=== PATIENT | male | born 1955 | race African-American/Black ===

== ENCOUNTER 2018-03-04 23:28 | Inpatient (IN) ==
--- NOTE | 2018-03-05 00:02 | ED ---
HPI General Chief complaint: Respiratory Symptoms Stated complaint: SOB Time Seen by Provider: 03/05/18 00:00 Source: patient History of Present Illness HPI narrative: The patient is a 62 year old female who presents to the [facility] emergency department with a history of greater than 3 weeks of cough and congestion. He reports that the cough is productive of a clear sputum. The patient reports having associated shortness of breath with exertion. He reports that recently the shortness of breath became so severe that when he was gasping for breath he felt a chest pain in the center of his chest. He denies having any chest pain currently. He denies any history of respiratory problems , however he does report a history of smoking a half a pack of cigarettes per day. He denies using an inhaler. He did see his primary care physician at the [facility] 3 weeks ago regarding the symptoms and was treated with antibiotic that he cannot recall the name of. He reports that he took it for 1 week. He reports that unfortunately his symptoms have continued. He did borrow a friend's inhaler this evening which helps some with his shortness of breath. He denies having any worsening lower extremity reports that he does have some edema that comes and goes. He denies any prior history of coronary artery disease, myocardial infarction, or congestive heart failure. He denies having any calf pain or erythema. On review of systems otherwise, the patient denies having any known recent fevers, neck pain, abdominal pain, vomiting, diarrhea, urinary symptoms, or neurologic symptoms. Related Data Home Medications Medication Instructions Recorded Confirmed aspirin [Aspir-81] 81 mg PO DAILY 03/04/18 03/04/18 insulin NPH isoph U-100 human 52 unit SUBCUT BID 03/04/18 03/04/18 [Novolin N NPH U-100 Insulin] insulin regular human [Novolin R 3 unit IM Q1H 03/04/18 03/04/18 Regular U-100 Insuln] Allergies Allergy/AdvReac Type Severity Reaction Status Date / Time No Known Allergies Allergy Verified 03/05/18 00:05 Review of Systems ROS: all other systems reviewed are negative [facility] Medical History Medical History Depression (Acute) Diabetes mellitus (Acute) HLD (hyperlipidemia) (Acute) Surgical History Surgical History Previous back surgery (Acute) Family History Family History Father Prostate cancer Social History Social History Substance History: No History of Abuse Second Hand Smoke Exposure: Yes Smoking Status: Current every day smoker Tobacco Type: Cigarettes How Often Do You Have a Drink Containing Alcohol: Never Recent Travel in [facility] within the Last 8 Weeks: No Recent Out of Country Travel within the Last 8 Weeks: No Immunization History Tetanus Immunization: Unsure Exam Const General: cooperative, no acute distress and well developed Nutritional Appearance: well nourished Orientation: alert, awake and oriented x3 HENMT Head: normocephalic and atraumatic Nose: no nasal discharge and no epistaxis Mouth: moist mucous membranes Eyes Sclera: normal sclerae Pupils: PERRL Neck Neck: no meningeal signs, trachea midline and no JVD Resp Effort & Inspection: no use of accessory muscles Auscultation: wheezes and other (The patient is a frequent sounding cough. The patient has decreased breath sounds in bilateral lung bases. The patient has soft expiratory wheezes posteriorly. No rhonchi or crackles are audible.) Cardio Rate: tachycardic (Sinus tachycardia in the low 100s. No pulse deficits to the extremities on simultaneous auscultation and palpation of his radial artery) Rhythm: regular rhythm Heart Sounds: no gallops, no murmurs and no rubs GI Inspection: non-distended Palpation: soft, no hepatosplenomegaly and nontender Skin General: dry skin (warm) Neuro General: alert, awake, oriented x3 and other (Grossly nonfocal) Cranial Nerves: other Speech: speech normal Motor: no movement abnormalities noted Extrem General: normal to inspection (2+ pulses in all 4 extremities), no calf tenderness, no clubbing, no cyanosis and edema (Trace pedal edema bilaterally.) Laterality: bilaterally Psych Mood: congruent mood Affect: normal affect Judgment: judgment good Course Initial Documented Vital Signs Pulse Rate 92 H 03/04/18 23:31 Respiratory Rate 16 03/04/18 23:31 Blood Pressure 122/59 L 03/04/18 23:31 Pulse Oximetry 96 03/04/18 23:31 Last Documented Vital Signs Temperature 98.7 F 03/05/18 12:00 Pulse Rate 104 H 03/05/18 18:00 Respiratory Rate 32 H 03/05/18 18:00 Blood Pressure 115/71 03/05/18 18:00 Pulse Oximetry 94 L 03/05/18 18:00 Medical Decision Making MDM Narrative Medical decision making narrative: During the course of the patient's emergency department visit, the patient's history, examination, and differential diagnosis were reviewed with the patient. The patient was placed on a bus driver/monitor with oximetry and frequent blood pressure monitoring. The patient had IV access obtained and blood work sent for analysis. A diagnostic evaluation was started regarding the patient's persistent cough, shortness of breath, chest pain. The patient was initially provided DuoNeb's for wheezing, Solu-Medrol 125 mg IV , Levaquin IV. The patient was provided aspirin 324 mg p.o. x1, nitroglycerin 1 inch to the chest wall. The patient was given a normal saline 500 mL bolus x1. The patient's diagnostic studies are remarkable for a white count of 7.6, hemoglobin 12.9, platelets 170 with 8.5 monocytes. PT PTT within normal limits , chemistries remarkable for chloride of 113, glucose 129, calcium 7.9, CPK is 2646 with a normal MB percent, troponin I is elevated at 0.08. A chest x-ray reveals bibasilar consolidation with tiny right effusion and cardiomegaly, pattern suggest pulmonary edema. The patient's case including history, pertinent physical examination findings, and laboratory studies were discussed with Dr. Ricci. It was agreed that the patient would be admitted to the hospitalist service. The patient's results were discussed with the patient, including the plan of care. I explained that further testing and/ or monitoring is indicated based on the patient's history, examination, and/ or laboratory findings. Therefore, I recommended admission for additional evaluation. The patient expressed understanding and was agreeable with this plan. The patient was admitted to the hospital in guarded condition and sent to a bed under the care of the [facility] service. Medical Screen Exam Complete: Yes Emergency Medical Condition: Yes Differential Diagnosis Differential Diagnosis: Pneumonia, versus COPD exacerbation, versus pneumothorax , versus acute coronary syndrome, versus new onset congestive heart failure Medical Records Medical records reviewed: Yes I reviewed the patient's medical records. Lab Data Lab results reviewed: Yes I reviewed the patient's lab results. Result diagrams: 03/05/18 09:08 03/05/18 09:07 Lab Results 03/05/18 03/05/18 03/05/18 Range/Units 00:13 00:13 00:13 WBC 7.6 (4.0-11.0) th/mm3 RBC 4.12 L (4.50-5.90) mil/mm3 Hgb 12.9 L (13.0-17.0) gm/dL Hct 37.8 L (39.0-51.0) % MCV 91.9 (80.0-100.0) fL MCH 31.4 (27.0-34.0) pg MCHC 34.2 (32.0-36.0) % RDW 15.2 (11.6-17.2) % Plt Count 170 (150-450) th/mm3 MPV 10.1 (7.0-11.0) fL Neut % (Auto) 55.1 (16.0-70.0) % Lymph % (Auto) 32.6 (9.0-44.0) % Hawkins % (Auto) 8.5 H (0.0-8.0) % Eos % (Auto) 3.0 (0.0-4.0) % Baso % (Auto) 0.8 (0.0-2.0) % Neut # (Auto) 4.2 (1.8-7.7) th/mm3 Lymph # (Auto) 2.5 (1.0-4.8) th/mm3 Hawkins # (Auto) 0.7 (0.0-0.9) th/mm3 Eos # (Auto) 0.2 (0.0-0.4) th/mm3 Baso # (Auto) 0.1 (0.0-0.2) th/mm3 WBC Differential . Differential Comment Auto diff final PT 10.3 (9.8-11.6) sec INR 1.0 Ratio APTT 26.5 (23.4-31.7) sec Sodium (136-145) meq/L Potassium (3.5-5.1) meq/L Chloride (98-107) meq/L Carbon Dioxide (21.0-32.0) meq/L Anion Gap (5-15) meq/L BUN (7-18) mg/dL Creatinine (0.60-1.30) mg/dL Estimated GFR (>89) mL/min POC Glucose (68-110) mg/dl Random Glucose (74-106) mg/dL Calcium (8.5-10.1) mg/dL Magnesium (1.5-2.5) mg/dL Total Bilirubin (0.2-1.0) mg/dL AST (15-37) U/L ALT (12-78) U/L Alkaline Phosphatase (45-117) U/L Total Creatine Kinase (39-308) U/L CK-MB (CK-2) (0.5-3.6) ng/mL CK-MB (CK-2) % (0.0-4.0) % Troponin I (0.02-0.05) ng/mL B-Natriuretic Peptide 164 H (0-100) pg/mL Total Protein (6.4-8.2) g/dL Albumin (3.4-5.0) g/dL Lipase (73-393) U/L Nasal Screen MRSA (PCR) (Negative) 03/05/18 03/05/18 03/05/18 Range/Units 00:13 00:16 00:45 WBC (4.0-11.0) th/mm3 RBC (4.50-5.90) mil/mm3 Hgb (13.0-17.0) gm/dL Hct (39.0-51.0) % MCV (80.0-100.0) fL MCH (27.0-34.0) pg MCHC (32.0-36.0) % RDW (11.6-17.2) % Plt Count (150-450) th/mm3 MPV (7.0-11.0) fL Neut % (Auto) (16.0-70.0) % Lymph % (Auto) (9.0-44.0) % Hawkins % (Auto) (0.0-8.0) % Eos % (Auto) (0.0-4.0) % Baso % (Auto) (0.0-2.0) % Neut # (Auto) (1.8-7.7) th/mm3 Lymph # (Auto) (1.0-4.8) th/mm3 Hawkins # (Auto) (0.0-0.9) th/mm3 Eos # (Auto) (0.0-0.4) th/mm3 Baso # (Auto) (0.0-0.2) th/mm3 WBC Differential Differential Comment PT (9.8-11.6) sec INR Ratio APTT (23.4-31.7) sec Sodium 145 (136-145) meq/L Potassium 3.5 (3.5-5.1) meq/L Chloride 114 H (98-107) meq/L Carbon Dioxide 25.7 (21.0-32.0) meq/L Anion Gap 5 (5-15) meq/L BUN 19 H (7-18) mg/dL Creatinine 1.10 (0.60-1.30) mg/dL Estimated GFR 68 L (>89) mL/min POC Glucose 54 L 122 H (68-110) mg/dl Random Glucose 54 L (74-106) mg/dL Calcium 7.8 L (8.5-10.1) mg/dL Magnesium 2.2 (1.5-2.5) mg/dL Total Bilirubin 0.7 (0.2-1.0) mg/dL AST 78 H (15-37) U/L ALT 111 H (12-78) U/L Alkaline Phosphatase 57 (45-117) U/L Total Creatine Kinase 2834 H (39-308) U/L CK-MB (CK-2) 11.7 H (0.5-3.6) ng/mL CK-MB (CK-2) % 0.4 (0.0-4.0) % Troponin I 0.12 H (0.02-0.05) ng/mL B-Natriuretic Peptide (0-100) pg/mL Total Protein 6.3 L (6.4-8.2) g/dL Albumin 3.4 (3.4-5.0) g/dL Lipase 53 L (73-393) U/L Nasal Screen MRSA (PCR) (Negative) 03/05/18 03/05/18 03/05/18 Range/Units 04:59 06:45 07:59 WBC (4.0-11.0) th/mm3 RBC (4.50-5.90) mil/mm3 Hgb (13.0-17.0) gm/dL Hct (39.0-51.0) % MCV (80.0-100.0) fL MCH (27.0-34.0) pg MCHC (32.0-36.0) % RDW (11.6-17.2) % Plt Count (150-450) th/mm3 MPV (7.0-11.0) fL Neut % (Auto) (16.0-70.0) % Lymph % (Auto) (9.0-44.0) % Hawkins % (Auto) (0.0-8.0) % Eos % (Auto) (0.0-4.0) % Baso % (Auto) (0.0-2.0) % Neut # (Auto) (1.8-7.7) th/mm3 Lymph # (Auto) (1.0-4.8) th/mm3 Hawkins # (Auto) (0.0-0.9) th/mm3 Eos # (Auto) (0.0-0.4) th/mm3 Baso # (Auto) (0.0-0.2) th/mm3 WBC Differential Differential Comment PT (9.8-11.6) sec INR Ratio APTT (23.4-31.7) sec Sodium (136-145) meq/L Potassium (3.5-5.1) meq/L Chloride (98-107) meq/L Carbon Dioxide (21.0-32.0) meq/L Anion Gap (5-15) meq/L BUN (7-18) mg/dL Creatinine (0.60-1.30) mg/dL Estimated GFR (>89) mL/min POC Glucose 102 147 H (68-110) mg/dl Random Glucose (74-106) mg/dL Calcium (8.5-10.1) mg/dL Magnesium (1.5-2.5) mg/dL Total Bilirubin (0.2-1.0) mg/dL AST (15-37) U/L ALT (12-78) U/L Alkaline Phosphatase (45-117) U/L Total Creatine Kinase (39-308) U/L CK-MB (CK-2) (0.5-3.6) ng/mL CK-MB (CK-2) % (0.0-4.0) % Troponin I (0.02-0.05) ng/mL B-Natriuretic Peptide (0-100) pg/mL Total Protein (6.4-8.2) g/dL Albumin (3.4-5.0) g/dL Lipase (73-393) U/L Nasal Screen MRSA (PCR) Not detected (Negative) 03/05/18 03/05/18 03/05/18 Range/Units 09:07 09:08 10:01 WBC 5.9 (4.0-11.0) th/mm3 RBC 3.90 L (4.50-5.90) mil/mm3 Hgb 12.3 L (13.0-17.0) gm/dL Hct 36.2 L (39.0-51.0) % MCV 92.7 (80.0-100.0) fL MCH 31.6 (27.0-34.0) pg MCHC 34.1 (32.0-36.0) % RDW 15.0 (11.6-17.2) % Plt Count 156 (150-450) th/mm3 MPV 10.1 (7.0-11.0) fL Neut % (Auto) 89.2 H (16.0-70.0) % Lymph % (Auto) 9.3 (9.0-44.0) % Hawkins % (Auto) 1.1 (0.0-8.0) % Eos % (Auto) 0.1 (0.0-4.0) % Baso % (Auto) 0.3 (0.0-2.0) % Neut # (Auto) 5.3 (1.8-7.7) th/mm3 Lymph # (Auto) 0.6 L (1.0-4.8) th/mm3 Hawkins # (Auto) 0.1 (0.0-0.9) th/mm3 Eos # (Auto) 0.0 (0.0-0.4) th/mm3 Baso # (Auto) 0.0 (0.0-0.2) th/mm3 WBC Differential . Differential Comment Auto diff final PT (9.8-11.6) sec INR Ratio APTT (23.4-31.7) sec Sodium 142 (136-145) meq/L Potassium 3.9 (3.5-5.1) meq/L Chloride 113 H (98-107) meq/L Carbon Dioxide 21.6 (21.0-32.0) meq/L Anion Gap 7 (5-15) meq/L BUN 17 (7-18) mg/dL Creatinine 0.96 (0.60-1.30) mg/dL Estimated GFR Greater than 89 (>89) mL/min POC Glucose 129 H (68-110) mg/dl Random Glucose 137 H (74-106) mg/dL Calcium 7.9 L (8.5-10.1) mg/dL Magnesium (1.5-2.5) mg/dL Total Bilirubin (0.2-1.0) mg/dL AST (15-37) U/L ALT (12-78) U/L Alkaline Phosphatase (45-117) U/L Total Creatine Kinase 2646 H (39-308) U/L CK-MB (CK-2) 10.6 H (0.5-3.6) ng/mL CK-MB (CK-2) % 0.4 (0.0-4.0) % Troponin I 0.08 H (0.02-0.05) ng/mL B-Natriuretic Peptide (0-100) pg/mL Total Protein (6.4-8.2) g/dL Albumin (3.4-5.0) g/dL Lipase (73-393) U/L Nasal Screen MRSA (PCR) (Negative) 03/05/18 03/05/18 03/05/18 Range/Units 12:27 13:41 17:02 WBC (4.0-11.0) th/mm3 RBC (4.50-5.90) mil/mm3 Hgb (13.0-17.0) gm/dL Hct (39.0-51.0) % MCV (80.0-100.0) fL MCH (27.0-34.0) pg MCHC (32.0-36.0) % RDW (11.6-17.2) % Plt Count (150-450) th/mm3 MPV (7.0-11.0) fL Neut % (Auto) (16.0-70.0) % Lymph % (Auto) (9.0-44.0) % Hawkins % (Auto) (0.0-8.0) % Eos % (Auto) (0.0-4.0) % Baso % (Auto) (0.0-2.0) % Neut # (Auto) (1.8-7.7) th/mm3 Lymph # (Auto) (1.0-4.8) th/mm3 Hawkins # (Auto) (0.0-0.9) th/mm3 Eos # (Auto) (0.0-0.4) th/mm3 Baso # (Auto) (0.0-0.2) th/mm3 WBC Differential Differential Comment PT (9.8-11.6) sec INR Ratio APTT (23.4-31.7) sec Sodium (136-145) meq/L Potassium (3.5-5.1) meq/L Chloride (98-107) meq/L Carbon Dioxide (21.0-32.0) meq/L Anion Gap (5-15) meq/L BUN (7-18) mg/dL Creatinine (0.60-1.30) mg/dL Estimated GFR (>89) mL/min POC Glucose 133 H 290 H (68-110) mg/dl Random Glucose (74-106) mg/dL Calcium (8.5-10.1) mg/dL Magnesium (1.5-2.5) mg/dL Total Bilirubin (0.2-1.0) mg/dL AST (15-37) U/L ALT (12-78) U/L Alkaline Phosphatase (45-117) U/L Total Creatine Kinase 2431 H (39-308) U/L CK-MB (CK-2) 9.9 H (0.5-3.6) ng/mL CK-MB (CK-2) % 0.4 (0.0-4.0) % Troponin I 0.05 (0.02-0.05) ng/mL B-Natriuretic Peptide (0-100) pg/mL Total Protein (6.4-8.2) g/dL Albumin (3.4-5.0) g/dL Lipase (73-393) U/L Nasal Screen MRSA (PCR) (Negative) Imaging Data Radiologist's impression: Chest X-Ray 03/05/18 00:06 CONCLUSION: Bibasilar consolidation with tiny right effusion and cardiomegaly. This pattern suggests pulmonary edema. ECG Data Attestation: I personally reviewed and interpreted this ECG as follows: Interpretation: Patient had an EKG done on arrival. The patient's EKG reveals a sinus rhythm heart rate of 97 with occasional supraventricular premature complexes, QRS duration is 106 ms, QTC 424 ms. The patient has no acute ST segment elevation. The patient has T wave abnormalities noted, T waves inverted in lead I, aVL. Discharge Plan Discharge Disposition Patient Disposition: ED Admit(ED Internal Use Only) Discharge Order Discharge Orders: ED Use Only Admit Order (Routine); Ordered 03/05/18 Ordered By: Camilla Sadler Discharge Details Diagnosis: Chest pain, rule out acute myocardial infarction, Rhabdomyolysis Physicians Team ED Provider: Camilla Sadler Primary Care Provider: UNKNOWN, Attending Provider: Genoveva Plasencia Other Providers: Mike Wu Discharge Interventions Interventions: ED Discharge Assessment Last Done: 03/05/18 11:36 Status ED Status: Left Department Discharge Information Discharge Date/Time: 03/05/18 11:36
[2018-03-05 00:34] LABS: Baso # (Auto) 0.1 th/mm3 (0.0-0.2); Baso % (Auto) 0.8 % (0.0-2.0); Eos # (Auto) 0.2 th/mm3 (0.0-0.4); Hematocrit 37.8 % (39.0-51.0); Hemoglobin 12.9 gm/dL (13.0-17.0); Lymph # (Auto) 2.5 th/mm3 (1.0-4.8); Lymph % (Auto) 32.6 % (9.0-44.0); Mean Corpuscular HGB Conc 34.2 % (32.0-36.0); Mean Corpuscular Hemoglobin 31.4 pg (27.0-34.0); Mean Corpuscular Volume 91.9 fL (80.0-100.0); Mean Platelet Volume 10.1 fL (7.0-11.0); Mono # (Auto) 0.7 th/mm3 (0.0-0.9); Mono % (Auto) 8.5 % (0.0-8.0); Neut # (Auto) 4.2 th/mm3 (1.8-7.7); Neut % (Auto) 55.1 % (16.0-70.0); Platelet Count 170 th/mm3 (150-450); Red Blood Count 4.12 mil/mm3 (4.50-5.90); Red Cell Distribution Width 15.2 % (11.6-17.2); White Blood Count 7.6 th/mm3 (4.0-11.0)
--- NOTE | 2018-03-05 00:40 | XR ---
EXAM DATE: 03/05/2018 12:36 AM EST AGE/SEX: 62 years / Male INDICATIONS: Short of breath, chest pain. CLINICAL DATA: This is the patient's initial encounter. Patient reports that signs and symptoms have been present for 1 day and indicates a pain score of 0/10. MEDICAL/SURGICAL HISTORY: None. None. COMPARISON: No prior exams available for comparison. FINDINGS: A single AP view of the chest demonstrates mild coronary mainly. Bibasilar pulmonary consolidation mo re pronounced on the right. Questionable tiny right effusion. No effusion on the left. CONCLUSION: Bibasilar consolidation with tiny right effusion and cardiomegaly. This pattern suggests pulmonary ed heriberto. Electronically signed by: Brad De La Fuente MD Board Certified Radiologist 03/05/2018 12:38 AM EST
[2018-03-05 00:41] LABS: Alanine Aminotransferase 111 U/L (12-78); Albumin 3.4 g/dL (3.4-5.0); Anion Gap 5 meq/L (5-15); Aspartate Aminotransferase 78 U/L (15-37); Blood Urea Nitrogen 19 mg/dL (7-18); Calcium 7.8 mg/dL (8.5-10.1); Carbon Dioxide 25.7 meq/L (21.0-32.0); Chloride 114 meq/L (98-107); Glomerular Filtration Rate 68 mL/min (>89); Glucose,Random 54 mg/dL (74-106); Lipase 53 U/L (73-393); Magnesium 2.2 mg/dL (1.5-2.5); Potassium 3.5 meq/L (3.5-5.1); Sodium 145 meq/L (136-145)
[2018-03-05 00:47] LABS: Activated Partial Thrombo Time 26.5 sec (23.4-31.7); Prothrombin Time 10.3 sec (9.8-11.6)
[2018-03-05 00:54] LABS: Alkaline Phosphatase 57 U/L (45-117); Creatine Kinase 2834 U/L (39-308); Total Protein 6.3 g/dL (6.4-8.2); Troponin I 0.12 ng/mL (0.02-0.05)
[2018-03-05 01:08] LABS: CKMB Percent 0.4 % (0.0-4.0); Creatine Kinase MB 11.7 ng/mL (0.5-3.6)
[2018-03-05] MEDS ORDERED: MethylPREDNISolone Sod Succinate Inj 125 MG/2 ML Vial IV.PUSH ONE (01:27)
[2018-03-05] MEDS ORDERED: Sodium Chlor 0.9% Inj 500 ML IV.SIG ONE (01:39)
[2018-03-05] MEDS ORDERED: Acetaminophen 325 MG Tablet PO PRN (02:21)
[2018-03-05] MEDS ORDERED: Bisacodyl 10 MG Supp RECTAL PRN (02:21)
[2018-03-05] MEDS: Sod Chloride 0.9% Inj 1,000 ML IV.CONT SCH ×3 (03:35→21:49)
--- NOTE | 2018-03-05 04:39 | P.HPIM ---
History of Present Illness Service: [facility] Primary Care Physician: UNKNOWN Chief Complaint: SOB, cough History of Present Illness: 62-year-old male with a history of BPH, diabetes, hyperlipidemia presented to the ER with complaints of cough, congestion and shortness of breath for the last 3 weeks. He states he has been feeling very weak and unable to sleep. He states he gets short of breath with exertion and is complaining of pain in his epigastric region. He states the pain is a intermittent, stabbing, 10/10, worse with movement and food, nothing makes it better. He states he feels week with pain all over and he is unable to sleep more than 1 hour at night. He states he becomes short of breath with exertion and when laying flat. He states when he lays flat he feels like he cannot breathe and his chest pain becomes worse. He denies any fevers or chills, dysuria, headaches, abdominal pain, vomiting, nausea or diarrhea. Inpatient Certification Inpatient Certification: I certify that the inpatient services were ordered in accordance with Medicare regulations governing the order. This includes certification that hospital inpatient services are reasonable and necessary and in the case of services not specified as inpatient-only under 42 CFR 419.22(n), that they are appropriately provided as inpatient services in accordance to with the 2-midnight benchmark under 43 CFR 412.3(e) Estimated Total Length of Stay (Days): 3 Plans for Post Hospital Care: Home Review of Systems Review of Systems: all other systems reviewed are negative [facility] Medical History Medical History Depression (Acute) Diabetes mellitus (Acute) HLD (hyperlipidemia) (Acute) Surgical History Surgical History Previous back surgery (Acute) Family History Family History Father Prostate cancer Social History Social History Substance History: No History of Abuse Second Hand Smoke Exposure: Yes Smoking Status: Current every day smoker Tobacco Type: Cigarettes How Often Do You Have a Drink Containing Alcohol: Never Recent Travel in [place] within the Last 8 Weeks: No Recent Out of Country Travel within the Last 8 Weeks: No Immunization History Tetanus Immunization: Unsure Medications and Allergies Allergies Allergy/AdvReac Type Severity Reaction Status Date / Time No Known Allergies Allergy Verified 03/05/18 00:05 Home Medications Medication Instructions Recorded Confirmed Type aspirin [Aspir-81] 81 mg PO DAILY 03/04/18 03/04/18 History insulin NPH isoph U-100 human 52 unit SUBCUT BID 03/04/18 03/04/18 History [Novolin N NPH U-100 Insulin] insulin regular human [Novolin R 3 unit IM Q1H 03/04/18 03/04/18 History Regular U-100 Insuln] Active Medications: Active Medications Acetaminophen (Tylenol) 650 mg PO Q4H PRN PRN Reason: Temp > 100.4 Al Hydroxide/Mg Hydroxide (Milk Of Magnesia Liq) 30 ml PO Q12H PRN PRN Reason: Mild Constipation Albuterol (Duoneb Neb (Maricarmen)) 1 ampul NEB Q6HR WHILE AWAKE NEB MARICARMEN Albuterol (Duoneb Neb (Prn)) 1 ampul NEB Q2HR NEB PRN PRN Reason: sob Aspirin (Aspirin) 325 mg PO DAILY [facility] Bisacodyl (Dulcolax Supp) 10 mg RECTAL DAILY PRN PRN Reason: SEVERE CONSITIPATION Sodium Chloride (Ns Inj) 1,000 mls @ 125 mls/hr IV.CONT .Q8H [facility] Last Admin: 03/05/18 03:35 Dose: 125 mls/hr Levofloxacin/Dextrose (Levaquin 750 Mg Premix Inj) 150 mls @ 100 mls/hr IV.SIG Q24H [facility] Lactulose (Lactulose Liq) 30 ml PO DAILY PRN PRN Reason: SEVERE CONSITIPATION Methylprednisolone Sodium Succinate (Solumedrol Inj) 40 mg IV.PUSH Q6H [facility] Nitroglycerin (Nitro-Bid 2% Oint) 1 inch TOPICAL Q6HR [facility] Ondansetron HCl (Zofran Inj) 4 mg IV.PUSH Q6H PRN PRN Reason: NAUSEA OR VOMITING Senna/Docusate Sodium (Selene-Colace) 1 tab PO BID [facility] Sennosides (Senokot) 17.2 mg PO Q12H PRN PRN Reason: Moderate Constipation Sodium Chloride (Ns Flush) 2 ml IV.FLUSH UNSCH PRN PRN Reason: FLUSH AFTER USING IV ACCESS Sodium Chloride (Ns Flush) 2 ml IV.FLUSH PRN PRN PRN Reason: FLUSH AFTER USING IV ACCESS Sodium Chloride (Ns Flush) 2 ml IV.FLUSH BID [facility] Physical Exam Vital signs: Last Vital Signs Temp 98.5 F 03/05/18 00:08 Pulse 74 03/05/18 03:31 Resp 22 03/05/18 03:31 BP 118/59 L 03/05/18 03:31 Pulse Ox 97 03/05/18 03:31 Intake & Output 03/02/18 03/03/18 03/04/18 03/05/18 06:59 06:59 06:59 06:59 Intake Total 650 / 650 Balance 650 / 650 Weight 104.326 kg Narrative: GENERAL: Well-nourished patient who appears very restless SKIN: Warm and dry. EYES: Pupils equal and round. No scleral icterus. No injection or drainage. ENT: No nasal bleeding or discharge. Mucous membranes pink and moist. NECK: Trachea midline. No JVD. CARDIOVASCULAR: Tachycardic rate and rhythm. RESPIRATORY: No accessory muscle use. Rhonchi throughout, diminished bases no crackles or wheezes noted. Breath sounds equal bilaterally. GASTROINTESTINAL: Abdomen soft, non-tender, nondistended. Hepatic and splenic margins not palpable. MUSCULOSKELETAL: Extremities without clubbing, cyanosis, or edema. No obvious deformities. NEUROLOGICAL: Awake and alert. No obvious cranial nerve deficits. Motor grossly within normal limits. Results Labs CBC & Chem 7: 03/05/18 00:13 03/05/18 00:13 Imaging Impressions Chest X-Ray 03/05/18 00:06 CONCLUSION: Bibasilar consolidation with tiny right effusion and cardiomegaly. This pattern suggests pulmonary edema. Caprini VTE Risk Assessment Caprini VTE Risk Assessment: Moderate/High Risk (score >= 2) Caprini Risk Assessment Model: Point Value = 1 Point Value = 2 Point Value = 3 Point Value = 5 Age 41-60 Minor surgery BMI > 25 kg/m2 Swollen legs Varicose veins or History of unexplained or recurrent spontaneous Oral contraceptives or hormone replacement Sepsis (< 1 month) Serious lung disease, including pneumonia (< 1 month) Abnormal pulmonary function Acute myocardial infarction Congestive heart failure (< 1 month) History of inflammatory bowel disease Medical patient at bed rest Age 61-74 Arthroscopic surgery Major open surgery (> 45 min) Laparoscopic surgery (> 45 min) Malignancy Confined to bed (> 72 hours) Immobilizing plaster cast Central venous access Age >= 75 History of VTE Family history of VTE Factor V Leiden Prothrombin [id number] Lupus anticoagulant Anticardiolipin antibodies Elevated serum homocysteine Heparin-induced thrombocytopenia Other congenital or acquired thrombophilia Stroke (< 1 month) Elective arthroplasty Hip, pelvis, or leg fracture Acute spinal cord injury (< 1 month) Prophylaxis Regimen: Total Risk Factor Score Risk Level Prophylaxis Regimen 0-1 Low Early ambulation 2 Moderate Order ONE of the following: *Sequential Compression Device (SCD) *Heparin 5000 units SQ BID 3-4 Higher Order ONE of the following medications: *Heparin 5000 units SQ TID *Enoxaparin/Lovenox 40 mg SQ daily (WT < 150 kg, CrCl > 30 mL/min) *Enoxaparin/Lovenox 30 mg SQ daily (WT < 150 kg, CrCl > 10-29 mL/min) *Enoxaparin/Lovenox 30 mg SQ BID (WT < 150 kg, CrCl > 30 mL/min) AND/OR *Sequential Compression Device (SCD) 5 or more Highest Order ONE of the following medications: *Heparin 5000 units SQ TID (Preferred with Epidurals) *Enoxaparin/Lovenox 40 mg SQ daily (WT < 150 kg, CrCl > 30 mL/min) *Enoxaparin/Lovenox 30 mg SQ daily (WT < 150 kg, CrCl > 10-29 mL/min) *Enoxaparin/Lovenox 30 mg SQ BID (WT < 150 kg, CrCl > 30 mL/min) AND *Sequential Compression Device (SCD) Assessment and Plan Plan 62-year-old male with a history of BPH, diabetes, hyperlipidemia presented to the ER with complaints of cough, congestion and shortness of breath for the last 3 weeks. Rhabdomyolysis CPK 2834 -IVF for hydration, decrease IVF once CPK decreases -Trend cpk -N.p.o. -Telemetry Pneumonia Chest x-ray shows by basilar consolidation with tiny right effusion and cardiomegaly -Lasix x1 given in ER -Monitor for fluid overload and increasing respiratory distress -Duo nebs -Levaquin IV -Solu-Medrol IV -Sputum culture -Urinary antigens Chest pain, troponin 0.12 -Serial troponins and EKGs -Consult to cardiology for evaluation -Aspirin daily -We will start heparin drip if troponin trend upward -Nitro-paste Diabetes, chronic -Accu-Cheks with sliding scale insulin DVT prophylaxis: Heparin Discussed Condition With: Patient, RN and ER physician
[2018-03-05] MEDS ORDERED: Dextrose 50% in Water 50 ML Vial IV.PUSH PRN (04:52)
[2018-03-05] MEDS: Heparin - SQ 10,000 UNITS/ML Vial SQ SCH ×3 (07:48→22:01)
[2018-03-05] MEDS: MethylPREDNISolone Sod Succinate Inj 40 MG/ML Vial IV.PUSH SCH ×3 (07:53→22:01)
[2018-03-05] MEDS: Insulin NovoLOG Aspart Correctional Sugar Inj SQ SCH ×4 (07:59→22:00)
[2018-03-05] MEDS: Aspirin 325 MG Tablet PO SCH (07:59)
[2018-03-05] MEDS: Senna/Docusate Sodium 8.6/50 MG Tablet PO SCH ×2 (08:00→22:02)
[2018-03-05 09:46] LABS: Baso % (Auto) 0.3 % (0.0-2.0); Eos % (Auto) 0.1 % (0.0-4.0); Hematocrit 36.2 % (39.0-51.0); Hemoglobin 12.3 gm/dL (13.0-17.0); Lymph # (Auto) 0.6 th/mm3 (1.0-4.8); Lymph % (Auto) 9.3 % (9.0-44.0); Mean Corpuscular HGB Conc 34.1 % (32.0-36.0); Mean Corpuscular Hemoglobin 31.6 pg (27.0-34.0); Mean Corpuscular Volume 92.7 fL (80.0-100.0); Mean Platelet Volume 10.1 fL (7.0-11.0); Mono # (Auto) 0.1 th/mm3 (0.0-0.9); Mono % (Auto) 1.1 % (0.0-8.0); Neut # (Auto) 5.3 th/mm3 (1.8-7.7); Neut % (Auto) 89.2 % (16.0-70.0); Platelet Count 156 th/mm3 (150-450); White Blood Count 5.9 th/mm3 (4.0-11.0)
[2018-03-05 10:08] LABS: Anion Gap 7 meq/L (5-15); Blood Urea Nitrogen 17 mg/dL (7-18); Calcium 7.9 mg/dL (8.5-10.1); Carbon Dioxide 21.6 meq/L (21.0-32.0); Chloride 113 meq/L (98-107); Glomerular Filtration Rate Greater Than 89 mL/min (>89); Glucose,Random 137 mg/dL (74-106); Potassium 3.9 meq/L (3.5-5.1); Sodium 142 meq/L (136-145)
[2018-03-05 10:22] LABS: Creatine Kinase 2646 U/L (39-308); Troponin I 0.08 ng/mL (0.02-0.05)
[2018-03-05 10:35] LABS: CKMB Percent 0.4 % (0.0-4.0); Creatine Kinase MB 10.6 ng/mL (0.5-3.6)
[2018-03-05 14:47] LABS: Troponin I 0.05 ng/mL (0.02-0.05)
[2018-03-05 14:59] LABS: CKMB Percent 0.4 % (0.0-4.0); Creatine Kinase MB 9.9 ng/mL (0.5-3.6)
--- NOTE | 2018-03-05 16:56 | ECHRPT ---
Indication: Heart Failure CONCLUSIONS Mildly dilated left ventricle. Mild concentric left ventricular hypertrophy. The left ventricular systolic function is moderately reduced with an estimated ejection fraction in the range of 40-45%. The left atrial size is mildly dilated. Mild mitral valve regurgitation. Aortic valve sclerosis is present. There is trace tricuspid valve regurgitation. The estimated pulmonary arterial pressure is 32 mmHg. BP: / HR: Rhythm: MEASUREMENTS (Male / Female) Normal Values Technical Quality:Fair 2D ECHO LV Diastolic Diameter PLAX 5.9 cm 4.2 - 5.9 / 3.9 - 5.3 cm LV Systolic Diameter PLAX 4.9 cm IVS Diastolic Thickness 1.1 cm 0.6 - 1.0 / 0.6 - 0.9 cm LVPW Diastolic Thickness 1.1 cm 0.6 - 1.0 / 0.6 - 0.9 cm LV Relative Wall Thickness 0.4 RV Internal Dim ED PLAX 2.9 cm LVOT Diameter 2.1 cm Aortic Root Diameter 2.6 cm LA Systolic Diameter LX 4.8 cm 3.0 - 4.0 / 2.7 - 3.8 cm M-MODE AV Cusp Separation MM 1.9 cm DOPPLER AV Peak Velocity 100.0 cm/s AV Peak Gradient 4.0 mmHg LVOT Peak Velocity 96.9 cm/s LVOT Peak Gradient 3.8 mmHg AV Area Cont Eq pk 3.4 cm Mitral E Point Velocity 130.0 cm/s LV E' Lateral Velocity 5.0 cm/s Mitral E to LV E' Lateral Ratio 26.2 LV E' Septal Velocity 5.7 cm/s Mitral E to LV E' Septal Ratio 23.0 TR Peak Velocity 233.0 cm/s TR Peak Gradient 21.7 mmHg Right Atrial Pressure 10.0 mmHg Pulmonary Artery Systolic Pressu 31.7 mmHg Right Ventricular Systolic Press 31.7 mmHg PV Peak Velocity 66.5 cm/s PV Peak Gradient 1.8 mmHg FINDINGS LEFT VENTRICLE Mildly dilated left ventricle. Mild concentric left ventricular hypertrophy. The left ventricular systolic function is moderately reduced with an estimated ejection fraction in the range of 40-45%. RIGHT VENTRICLE Normal right ventricular size and systolic function. LEFT ATRIUM The left atrial size is mildly dilated. RIGHT ATRIUM The right atrial size is normal. ATRIAL SEPTUM Normal atrial septal thickness without atrial level shunting by limited color doppler interrogation. AORTA The aortic root and proximal ascending aorta are normal in size on limited imaging. MITRAL VALVE Mild mitral valve regurgitation. AORTIC VALVE Trileaflet aortic valve. Aortic valve sclerosis is present. TRICUSPID VALVE There is trace tricuspid valve regurgitation. The estimated pulmonary arterial pressure is 32 mmHg. PULMONARY VALVE No pulmonary valve regurgitation or stenosis. VESSELS The inferior vena cava is normal in size. PERICARDIUM No pericardial effusion. Mike Wu MD, FACC (Electronically Signed) Final Date:05 March 2018 16:55
--- NOTE | 2018-03-05 17:49 | P.PNIM ---
Subjective Interval history: Reports that he currently lives in the [facility] and currently homeless. He has been having a dry cough for a few weeks. No fevers or chills. Reports he has difficulty lying flat and has not slept well during the past few weeks. Reports having lower chest pain yesterday that has improved with the Nitropaste. States in the [facility] who states that he had 1% heart damage. He has not had a cardiac cath previously. He had a nuclear stress test many years ago which he does not know the results of. He thinks that he has had a previous echo done before. He reports right calf pain. Denies any recent falls or trauma. Results Labs CBC & Chem 7: 03/07/18 07:40 03/07/18 07:40 Labs: Microbiology 03/05/18 06:13 Urine - Clean Catch Urine Streptococcus pneumoniae Antigen ( M - Final Presumptive negative for streptococcus pneumoniae antigen, suggesting no current or recent infection. Infection due to Streptococcus pneumoniae cannot be ruled out since the antigen present in the sample may be below the detection limit of the test. 03/05/18 06:13 Urine - Clean Catch Urine Legionella Antigen - Final Presumptive negative for Legionella pneumophila serogroup 1 antigen in urine, suggesting no recent or recurrent infection. Infection due to Legionella cannot be ruled out since other serogroups and species may cause disease, antigen may not be present in urine in early infection, and the level of antigen present in the urine may be below the detection limit of the test. Imaging Imaging: Impressions Chest X-Ray 03/05/18 00:06 CONCLUSION: Bibasilar consolidation with tiny right effusion and cardiomegaly. This pattern suggests pulmonary edema. Assessment and Plan Plan 62-year-old male with a history of diabetes mellitus, hyperlipidemia who is not the best historian presents with cough congestion and shortness of breath worse when laying flat and at night Dyspnea, patient may have underlying congestive heart failure exacerbationat this time will stop IV fluid hydration and start diuretics Lasix. Check BNP, 2D echo for further workup. Upper respiratory infection, rule out underlying community-acquired pneumonia WBC not elevated, Levaquin has been initiated. Continue DuoNeb treatments. Decrease steroids, Mild elevation CPK, questionable rhabdostatus post IV fluid hydration which patient seems to be fluid overloaded today with increasing respiratory symptoms , we will discontinue IV fluids, repeat CPK in the morning Chest pain with elevated troponin I rule out underlying non-ST elevation TN- aspirin, Nitropaste, check 2D echo, when respiratory status improve consideration for nuclear stress test for further workup. Cardiology evaluation. Right calf painDoppler ultrasound to rule out DVT. Diabetes mellitus, insulin-dependent, uncontrolled -start Levemir, blood glucose monitoring with sliding scale insulin while on steroids. DVT prophylaxisheparin Transfer out of intensive care unit ;will continue cardiac monitoring Progress Note: Quality VTE Deep Vein Thrombosis/Pulmonary Embolism Present on Admission: No
--- NOTE | 2018-03-05 19:52 | US ---
EXAM DATE: 03/05/2018 7:49 PM EST AGE/SEX: 62 years / Male INDICATIONS: Right leg pain. CLINICAL DATA: This is the patient's initial encounter. Patient reports that signs and symptoms have been present for 3 days and indicates a pain score of 3/10. MEDICAL/SURGICAL HISTORY: . Depression. Diabetes. Hyperlipidemia. . Back surgery. COMPARISON: No prior exams available for comparison. TECHNIQUE: Venous ultrasound of both lower extremities was performed from the inguinal ligament to t he proximal calf. Real-time, color Doppler and spectral tracing, compression and augmentation techni ques were used. FINDINGS: Normal compression of the deep venous system from the inguinal region to the proximal calf . No echogenic clot is seen. Normal response of the venous system to augmentation and respiration. CONCLUSION: Negative study. No venous thrombosis of the right lower extremity. Electronically signed by: Reymundo Ching MD Board Certified Radiologist 03/05/2018 7:51 PM EST
--- NOTE | 2018-03-05 21:30 | ECG ---
Date Performed: 03/05/2018 Time Performed: 13:21:38 PTAGE: 62 years EKG: Sinus rhythm . Left anterior fascicular block rSr'(V1) - probable normal variant Possible anterior infarct - age u ndetermined Lateral T wave changes Abnormal ECG PREVIOUS TRACING : 03/05/2018 00.19 Since the previous tracing, no significant change noted DOCTOR: Mike Wu Interpretating Date/Time 03/05/2018 21:29:15
[2018-03-05] MEDS: Insulin Detemir Inj 1,000 UNIT/10 ML Vial SQ SCH (21:59)
--- NOTE | 2018-03-06 01:15 | ECG ---
Date Performed: 03/05/2018 Time Performed: 00:19:37 PTAGE: 62 years EKG: Sinus rhythm WITH OCCASIONAL SUPRAVENTRICULAR PREMATURE COMPLEXES INCOMPLETE RIGHT BUNDLE BRANCH BLOCK LEFT ANTER IOR FASCICULAR BLOCK NONSPECIFIC T-WAVE ABNORMALITY ABNORMAL ECG NO PREVIOUS TRACING DOCTOR: Michael Wang Interpretating Date/Time 03/06/2018 01:14:44
[2018-03-06] MEDS ORDERED: Chlorhexidine Gluconate 2% 1 Pack (2 Cloths) TOPICAL PRN (04:00)
[2018-03-06] MEDS: Chlorhexidine Gluconate 2% 1 Pack (2 Cloths) TOPICAL SCH (04:42)
[2018-03-06] MEDS: Heparin - SQ 10,000 UNITS/ML Vial SQ SCH (05:58)
[2018-03-06] MEDS: MethylPREDNISolone Sod Succinate Inj 40 MG/ML Vial IV.PUSH SCH ×3 (05:59→21:16)
[2018-03-06] MEDS: Sod Chloride 0.9% Inj 1,000 ML IV.CONT SCH ×3 (06:50→17:56)
[2018-03-06 07:49] LABS: Baso % (Auto) 0.4 % (0.0-2.0); Eos % (Auto) 0.1 % (0.0-4.0); Hematocrit 36.2 % (39.0-51.0); Hemoglobin 12.1 gm/dL (13.0-17.0); Lymph # (Auto) 0.7 th/mm3 (1.0-4.8); Lymph % (Auto) 9.6 % (9.0-44.0); Mean Corpuscular HGB Conc 33.3 % (32.0-36.0); Mean Corpuscular Hemoglobin 31.4 pg (27.0-34.0); Mean Corpuscular Volume 94.3 fL (80.0-100.0); Mean Platelet Volume 11.7 fL (7.0-11.0); Mono # (Auto) 0.3 th/mm3 (0.0-0.9); Mono % (Auto) 4.5 % (0.0-8.0); Neut # (Auto) 6.5 th/mm3 (1.8-7.7); Neut % (Auto) 85.4 % (16.0-70.0); Platelet Count 153 th/mm3 (150-450); Red Blood Count 3.84 mil/mm3 (4.50-5.90); Red Cell Distribution Width 15.3 % (11.6-17.2); White Blood Count 7.6 th/mm3 (4.0-11.0)
[2018-03-06 08:24] LABS: Calcium 8.1 mg/dL (8.5-10.1); Carbon Dioxide 23.2 meq/L (21.0-32.0); Potassium 4.5 meq/L (3.5-5.1)
[2018-03-06 09:01] LABS: CKMB Percent 0.4 % (0.0-4.0); Creatine Kinase MB 8.2 ng/mL (0.5-3.6)
[2018-03-06] MEDS: Insulin NovoLOG Aspart Correctional Sugar Inj SQ SCH ×4 (10:21→21:17)
[2018-03-06] MEDS: Insulin Detemir Inj 1,000 UNIT/10 ML Vial SQ SCH ×2 (10:22→21:16)
[2018-03-06] MEDS: Aspirin 325 MG Tablet PO SCH (10:22)
[2018-03-06] MEDS: Senna/Docusate Sodium 8.6/50 MG Tablet PO SCH ×2 (10:22→21:15)
--- NOTE | 2018-03-06 14:23 | P.PNIM ---
Subjective Interval history: Patient says acute pain continues all over. He denies recent drug use, however does acknowledge previous drug use in the past. Physical Exam Vital signs: Vital Signs 03/05/18 15:00 03/05/18 15:56 03/05/18 16:00 Temperature Pulse Rate 107 H 107 H Respiratory Rate 34 H 30 H Blood Pressure 95/61 L Pulse Oximetry 95 96 97 03/05/18 16:06 03/05/18 17:00 03/05/18 17:57 Temperature Pulse Rate 100 H 99 H 104 H Respiratory Rate 37 H 28 H Blood Pressure 105/52 L 112/71 Pulse Oximetry 96 96 03/05/18 18:00 03/05/18 19:00 03/05/18 20:00 Temperature 98.3 F Pulse Rate 104 H 95 H 102 H Respiratory Rate 32 H 20 32 H Blood Pressure 115/71 104/56 L 112/55 L Pulse Oximetry 94 L 90 L 98 03/05/18 20:39 03/05/18 21:00 03/05/18 22:00 Temperature Pulse Rate 98 H 96 H 95 H Respiratory Rate 22 21 33 H Blood Pressure 94/48 L 105/49 L Pulse Oximetry 95 90 L 97 03/05/18 23:00 03/06/18 00:00 03/06/18 00:07 Temperature 98 F Pulse Rate 98 H 93 H Respiratory Rate 36 H 33 H Blood Pressure 104/65 92/51 L Pulse Oximetry 96 96 95 03/06/18 01:00 03/06/18 02:00 03/06/18 03:00 Temperature Pulse Rate 92 H 96 H 90 Respiratory Rate 27 H 29 H 20 Blood Pressure 105/64 99/55 L 91/64 L Pulse Oximetry 97 97 100 03/06/18 03:47 03/06/18 04:00 03/06/18 05:00 Temperature 98.5 F Pulse Rate 90 92 H Respiratory Rate 24 30 H Blood Pressure 86/53 L 102/56 L Pulse Oximetry 93 L 98 98 03/06/18 06:00 03/06/18 07:00 03/06/18 07:33 Temperature Pulse Rate 91 H 93 H 89 Respiratory Rate 28 H 30 H 17 Blood Pressure 104/57 L 105/57 L Pulse Oximetry 99 98 98 03/06/18 08:00 03/06/18 08:56 03/06/18 09:00 Temperature 98.3 F Pulse Rate 94 H 94 H Respiratory Rate 26 H 33 H Blood Pressure 104/64 94/53 L Pulse Oximetry 98 98 03/06/18 10:00 03/06/18 11:00 03/06/18 11:04 Temperature Pulse Rate 96 H 107 H 104 H Respiratory Rate 33 H 29 H 24 Blood Pressure 94/56 L 99/55 L Pulse Oximetry 03/06/18 11:30 03/06/18 12:00 03/06/18 12:01 Temperature Pulse Rate 99 H 100 H 100 H Respiratory Rate 17 30 H 30 H Blood Pressure 127/73 Pulse Oximetry Intake & Output 03/05/18 03/06/18 03/06/18 18:59 06:59 18:59 Intake Total 2015 300 / 300 Output Total 425 / 425 825 / 825 1551 / 1551 Balance 1591 / 1591 -525 / -525 -1551 / -1551 Weight 109.2 kg Intake: IV 1815 150 / 150 NS Inj 1,000 ML @ 100 mls/hr IV 1815 .CONT .Q10H [facility] Rx#:[id number] Levaquin 750 mg Premix Inj 150 150 / 150 ML @ 100 mls/hr IV.SIG Q24H [facility] Rx#:[id number] Oral 200 / 200 150 / 150 Output: Urine 425 / 425 825 / 825 1550 / 1550 Urine/Stool Mix Other: Date of Last Bowel Movement 03/06/18 # Bowel Movements 0 Narrative: GENERAL: Patient lying in bed. Sleeping. Wakes up for exam. Appears comfortable. SKIN: Warm and dry. HEAD: Normocephalic. EYES: No scleral icterus. No injection or drainage. NECK: Supple, trachea midline. No JVD. CARDIOVASCULAR: Regular rate and rhythm without murmurs, gallops, or rubs. RESPIRATORY: Breath sounds equal bilaterally. No accessory muscle use. GASTROINTESTINAL: Abdomen soft, non-tender, nondistended. MUSCULOSKELETAL: No cyanosis, or edema. BACK: Nontender without obvious deformity. No CVA tenderness. Results - Labs CBC & Chem 7: 03/06/18 04:53 03/06/18 04:53 Laboratory Results - last 24 hr 03/05/18 03/05/18 03/05/18 09:08 13:41 17:02 WBC RBC Hgb Hct MCV MCH MCHC RDW Plt Count MPV Prelim Diff (Auto) Neut % (Auto) Lymph % (Auto) Woodson % (Auto) Eos % (Auto) Baso % (Auto) Neut # (Auto) Lymph # (Auto) Woodson # (Auto) Eos # (Auto) Baso # (Auto) WBC Differential Diff Scan Differential Comment Sodium Potassium Chloride Carbon Dioxide Anion Gap BUN Creatinine Estimated GFR POC Glucose 290 H Random Glucose Calcium Total Creatine Kinase 2431 H CK-MB (CK-2) 9.9 H CK-MB (CK-2) % 0.4 Troponin I 0.05 B-Natriuretic Peptide 157 H 03/05/18 03/06/18 03/06/18 20:11 04:53 04:53 WBC 7.6 RBC 3.84 L Hgb 12.1 L Hct 36.2 L MCV 94.3 MCH 31.4 MCHC 33.3 RDW 15.3 Plt Count 153 MPV 11.7 H Prelim Diff (Auto) Slide review pending Neut % (Auto) 85.4 H Lymph % (Auto) 9.6 Woodson % (Auto) 4.5 Eos % (Auto) 0.1 Baso % (Auto) 0.4 Neut # (Auto) 6.5 Lymph # (Auto) 0.7 L Woodson # (Auto) 0.3 Eos # (Auto) 0.0 Baso # (Auto) 0.0 WBC Differential . Diff Scan Auto diff confirmed Differential Comment . Sodium 140 Potassium 4.5 Chloride 110 H Carbon Dioxide 23.2 Anion Gap 7 BUN 27 H Creatinine 1.11 Estimated GFR 81 L POC Glucose 206 H Random Glucose 186 H Calcium 8.1 L Total Creatine Kinase 2113 H CK-MB (CK-2) 8.2 H CK-MB (CK-2) % 0.4 Troponin I B-Natriuretic Peptide 03/06/18 11:47 WBC RBC Hgb Hct MCV MCH MCHC RDW Plt Count MPV Prelim Diff (Auto) Neut % (Auto) Lymph % (Auto) Woodson % (Auto) Eos % (Auto) Baso % (Auto) Neut # (Auto) Lymph # (Auto) Woodson # (Auto) Eos # (Auto) Baso # (Auto) WBC Differential Diff Scan Differential Comment Sodium Potassium Chloride Carbon Dioxide Anion Gap BUN Creatinine Estimated GFR POC Glucose 181 H Random Glucose Calcium Total Creatine Kinase CK-MB (CK-2) CK-MB (CK-2) % Troponin I B-Natriuretic Peptide Microbiology 03/05/18 01:50 Blood - Peripheral Aerobic Blood Culture - Preliminary No growth in 1 day 03/05/18 01:50 Blood - Peripheral Anaerobic Blood Culture - Preliminary No growth in 1 day 03/05/18 01:55 Blood - Peripheral Aerobic Blood Culture - Preliminary No growth in 1 day 03/05/18 01:55 Blood - Peripheral Anaerobic Blood Culture - Preliminary No growth in 1 day 03/05/18 06:13 Urine - Clean Catch Urine Streptococcus pneumoniae Antigen ( M - Final Presumptive negative for streptococcus pneumoniae antigen, suggesting no current or recent infection. Infection due to Streptococcus pneumoniae cannot be ruled out since the antigen present in the sample may be below the detection limit of the test. 03/05/18 06:13 Urine - Clean Catch Urine Legionella Antigen - Final Presumptive negative for Legionella pneumophila serogroup 1 antigen in urine, suggesting no recent or recurrent infection. Infection due to Legionella cannot be ruled out since other serogroups and species may cause disease, antigen may not be present in urine in early infection, and the level of antigen present in the urine may be below the detection limit of the test. - Imaging Impressions Venous Doppler Study 03/05/18 00:00 CONCLUSION: Negative study. No venous thrombosis of the right lower extremity. Assessment and Plan - Plan 62-year-old male with a history of diabetes mellitus, hyperlipidemia who is not the best historian presents with cough congestion and shortness of breath worse when laying flat and at night //Dyspnea, patient may have underlying congestive heart failure exacerbationat this time will stop IV fluid hydration and start diuretics Lasix. Check BNP, 2D echo for further workup. -BNP mildly elevated in the 100s. Cardiology following. Appreciate assistance. //Upper respiratory infection, rule out underlying community-acquired pneumonia WBC not elevated, Levaquin has been initiated. Continue DuoNeb treatments. Decrease steroids, //Mild elevation CPK, questionable rhabdostatus post IV fluid hydration which patient seems to be fluid overloaded today with increasing respiratory symptoms , we will discontinue IV fluids, repeat CPK in the morning -Repeat CPK slightly improved to 2100. Check urine drug screen. //Chest pain with elevated troponin I rule out underlying non-ST elevation SC- aspirin, Nitropaste, check 2D echo, when respiratory status improve consideration for nuclear stress test for further workup. Cardiology evaluation. = Appreciate cardiology assistance. //Right calf painDoppler ultrasound to rule out DVT. //Diabetes mellitus, insulin-dependent, uncontrolled -start Levemir, blood glucose monitoring with sliding scale insulin while on steroids. //DVT prophylaxisheparin Discussed Condition With: Patient, nurse, ED physician.
--- NOTE | 2018-03-06 15:38 | P.CONCA ---
History of Present Illness Service: Cardiology Consult date: 03/06/18 Requesting Physician: Genoveva Plasencia Reason for Consult: Chest pain with elevated troponin Primary Care Provider: UNKNOWN Chief Complaint: SOB, cough History of Present Illness: This is a 62-year-old male with a past medical history of BPH, diabetes and hyperlipidemia. He currently lives at the [facility] and is considered homeless. He states, that he has not been able to sleep, developed a cough and has been short of breath, with any activity, for the last 3 weeks. He also developed intermitted epigastric pain, that increases after he eats and nothing makes the pain better. He also complains of generalized body pain which makes it very hard for him to sleep. He states, that he is unable to lay flat because he feels like he can not breath and the epigastric pain becomes worse. Currently, he denies any CP, pressure, palpitations, dizziness, edema or SOB. 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 - Medical History Medical History: Medical History (Last Updated 03/05/18 @ 04:37 by KADEN Akhtar) Depression Diabetes mellitus HLD (hyperlipidemia) - Surgical History Surgical History: Surgical History (Last Updated 03/04/18 @ 23:32 by Vesta Villagomez RN) Previous back surgery - Family History Family History: Family History Father Prostate cancer - Tobacco History Second Hand Smoke Exposure: Yes Tobacco Use In Past 30 Days: Yes Smoking Status: Current every day smoker Tobacco Type: Cigarettes - Alcohol History How Often Do You Have a Drink Containing Alcohol: Never - Substance Use History Substance History: No History of Abuse - Travel History Recent Travel in the [facility] Within the Last 8 Weeks: No Recent Travel Out of the Country Within the Last 8 Weeks: No - Immunization History Tetanus Immunization: Unsure Hx Influenza Vaccine This Season: No Medications and Allergies Allergies Allergy/AdvReac Type Severity Reaction Status Date / Time No Known Allergies Allergy Verified 03/05/18 00:05 Home Medications Medication Instructions Recorded Confirmed Type aspirin [Aspir-81] 81 mg PO DAILY 03/04/18 03/04/18 History insulin NPH isoph U-100 human 52 unit SUBCUT BID 03/04/18 03/04/18 History [Novolin N NPH U-100 Insulin] insulin regular human [Novolin R 3 unit IM Q1H 03/04/18 03/04/18 History Regular U-100 Insuln] Active Medications: Active Medications Acetaminophen (Tylenol) 650 mg PO Q4H PRN PRN Reason: Temp > 100.4 Al Hydroxide/Mg Hydroxide (Milk Of Alice Liq) 30 ml PO Q12H PRN PRN Reason: Mild Constipation Albuterol (Duoneb Neb ([facility])) 1 ampul NEB Q6HR WHILE AWAKE NEB [facility] Last Admin: 03/06/18 11:29 Dose: 1 ampul Albuterol (Duoneb Neb (Prn)) 1 ampul NEB Q2HR NEB PRN PRN Reason: sob Aspirin (Aspirin) 325 mg PO DAILY [facility] Last Admin: 03/06/18 10:22 Dose: 325 mg Bisacodyl (Dulcolax Supp) 10 mg RECTAL DAILY PRN PRN Reason: SEVERE CONSITIPATION Chlorhexidine Gluconate (Chlorhexidine 2% Cloth) 3 pack TOPICAL DAILY@0400 [facility] Stop: 03/11/18 03:59 Last Admin: 03/06/18 04:42 Dose: 3 pack Chlorhexidine Gluconate (Chlorhexidine 2% Cloth) 3 pack TOPICAL DAILY@0400 PRN PRN Reason: Extra cloth needed Stop: 03/11/18 03:59 Dextrose (D50w Vial) 50 ml IV.PUSH UNSCH PRN PRN Reason: PER HYPOGLYCEMIA PROTOCOL Furosemide (Lasix Inj) 40 mg IV.PUSH BID@0900,1800 [facility] Last Admin: 03/06/18 10:22 Dose: 40 mg Glucagon (Glucagon Inj) 1 mg OTHER PRN PRN PRN Reason: for Hypoglycemia Protocol Heparin Sodium (Porcine) (Heparin Inj) 5,000 units SQ Q8HR [facility] Last Admin: 03/06/18 05:58 Dose: 5,000 units Sodium Chloride (Ns Inj) 1,000 mls @ 100 mls/hr IV.CONT .Q10H [facility] Last Admin: 03/06/18 14:20 Dose: 100 mls/hr Levofloxacin/Dextrose (Levaquin 750 Mg Premix Inj) 150 mls @ 100 mls/hr IV.SIG Q24H [facility] Last Infusion: 03/06/18 02:10 Dose: Infused Insulin Aspart (Novolog Insulin Correctional Sugar Inj) 0 unit SQ ACHS [facility]; Protocol Last Admin: 03/06/18 11:50 Dose: Not Given Insulin Detemir (Levemir Inj) 20 unit SQ BID [facility] Last Admin: 03/06/18 10:22 Dose: 20 unit Lactulose (Lactulose Liq) 30 ml PO DAILY PRN PRN Reason: SEVERE CONSITIPATION Methylprednisolone Sodium Succinate (Solumedrol Inj) 40 mg IV.PUSH Q8HR [facility] Last Admin: 03/06/18 14:06 Dose: 40 mg Nitroglycerin (Nitro-Bid 2% Oint) 1 inch TOPICAL Q6HR [facility] Last Admin: 03/06/18 14:06 Dose: 1 inch Ondansetron HCl (Zofran Inj) 4 mg IV.PUSH Q6H PRN PRN Reason: NAUSEA OR VOMITING Last Admin: 03/05/18 15:42 Dose: 4 mg Potassium Chloride (K-Dur) 20 meq PO BID [facility] Last Admin: 03/06/18 10:22 Dose: 20 meq Senna/Docusate Sodium (Selene-Colace) 1 tab PO BID [facility] Last Admin: 03/06/18 10:22 Dose: 1 tab Sennosides (Senokot) 17.2 mg PO Q12H PRN PRN Reason: Moderate Constipation Sodium Chloride (Ns Flush) 2 ml IV.FLUSH PRN PRN PRN Reason: FLUSH AFTER USING IV ACCESS Sodium Chloride (Ns Flush) 2 ml IV.FLUSH BID [facility] Last Admin: 03/06/18 10:22 Dose: 2 ml Exam Vital signs: Vital Signs 03/05/18 15:56 03/05/18 16:00 03/05/18 16:06 Temperature Pulse Rate 107 H 100 H Respiratory Rate 30 H 37 H Blood Pressure 105/52 L Pulse Oximetry 96 97 96 03/05/18 17:00 03/05/18 17:57 03/05/18 18:00 Temperature Pulse Rate 99 H 104 H 104 H Respiratory Rate 28 H 32 H Blood Pressure 112/71 115/71 Pulse Oximetry 96 94 L 03/05/18 19:00 03/05/18 20:00 03/05/18 20:39 Temperature 98.3 F Pulse Rate 95 H 102 H 98 H Respiratory Rate 20 32 H 22 Blood Pressure 104/56 L 112/55 L Pulse Oximetry 90 L 98 95 03/05/18 21:00 03/05/18 22:00 03/05/18 23:00 Temperature Pulse Rate 96 H 95 H 98 H Respiratory Rate 21 33 H 36 H Blood Pressure 94/48 L 105/49 L 104/65 Pulse Oximetry 90 L 97 96 03/06/18 00:00 03/06/18 00:07 03/06/18 01:00 Temperature 98 F Pulse Rate 93 H 92 H Respiratory Rate 33 H 27 H Blood Pressure 92/51 L 105/64 Pulse Oximetry 96 95 97 03/06/18 02:00 03/06/18 03:00 03/06/18 03:47 Temperature Pulse Rate 96 H 90 Respiratory Rate 29 H 20 Blood Pressure 99/55 L 91/64 L Pulse Oximetry 97 100 93 L 03/06/18 04:00 03/06/18 05:00 03/06/18 06:00 Temperature 98.5 F Pulse Rate 90 92 H 91 H Respiratory Rate 24 30 H 28 H Blood Pressure 86/53 L 102/56 L 104/57 L Pulse Oximetry 98 98 99 03/06/18 07:00 03/06/18 07:33 03/06/18 08:00 Temperature 98.3 F Pulse Rate 93 H 89 94 H Respiratory Rate 30 H 17 26 H Blood Pressure 105/57 L 104/64 Pulse Oximetry 98 98 98 03/06/18 08:56 03/06/18 09:00 03/06/18 10:00 Temperature Pulse Rate 94 H 96 H Respiratory Rate 33 H 33 H Blood Pressure 94/53 L 94/56 L Pulse Oximetry 98 03/06/18 11:00 03/06/18 11:04 03/06/18 11:30 Temperature Pulse Rate 107 H 104 H 99 H Respiratory Rate 29 H 24 17 Blood Pressure 99/55 L Pulse Oximetry 03/06/18 12:00 03/06/18 12:01 Temperature Pulse Rate 100 H 100 H Respiratory Rate 30 H 30 H Blood Pressure 127/73 Pulse Oximetry Intake & Output 03/05/18 03/06/18 03/06/18 18:59 06:59 18:59 Intake Total 2015 300 / 300 184 / 184 Output Total 425 / 425 825 / 825 1551 / 1551 Balance 1591 / 1591 -525 / -525 -1367 / -1367 Weight 109.2 kg Intake: IV 1816 / 1816 150 / 150 184 / 184 NS Inj 1,000 ML @ 100 mls/hr IV 1816 / 1816 184 / 184 .CONT .Q10H [facility] Rx#:[id number] Levaquin 750 mg Premix Inj 150 150 / 150 ML @ 100 mls/hr IV.SIG Q24H [facility] Rx#:[id number] Oral 200 / 200 150 / 150 Output: Urine 425 / 425 825 / 825 1550 / 1550 Urine/Stool Mix Other: Date of Last Bowel Movement 03/06/18 # Bowel Movements 0 - Constitutional no acute distress - Routine HEENT Exam Head: Present: normocephalic Eye: Present: PERRL ENT: Present: mucous membranes moist - Routine Neck Exam Present: full ROM - Routine Respiratory Exam Present: crackles Comments: bilateral lower lobes - Routine Cardiovascular Exam Present: S1, S2. Absent: murmur, gallop, rubs - Routine Abdominal Exam Present: normoactive bowel sounds - Routine Extremities Exam Present: full ROM, pulses intact, normal capillary refill. Absent: cyanosis, clubbing, edema - Routine Skin Exam Present: intact - Routine Neurological Exam Present: oriented X3 Results 03/06/18 04:53 03/06/18 04:53 Cardiac Enzymes 03/05/18 03/05/18 03/05/18 Range/Units 00:13 00:13 09:07 AST 78 H (15-37) U/L CK-MB (CK-2) 11.7 H 10.6 H (0.5-3.6) ng/mL Troponin I 0.12 H 0.08 H (0.02-0.05) ng/mL B-Natriuretic Peptide 164 H (0-100) pg/mL 03/05/18 03/05/18 03/06/18 Range/Units 09:08 13:41 04:53 AST (15-37) U/L CK-MB (CK-2) 9.9 H 8.2 H (0.5-3.6) ng/mL Troponin I 0.05 (0.02-0.05) ng/mL B-Natriuretic Peptide 157 H (0-100) pg/mL Coagulation 03/05/18 03/05/18 03/05/18 Range/Units 00:13 00:13 09:08 PT 10.3 (9.8-11.6) sec APTT 26.5 (23.4-31.7) sec B-Natriuretic Peptide 164 H 157 H (0-100) pg/mL CBC 03/05/18 03/05/18 03/06/18 Range/Units 00:13 09:08 04:53 WBC 7.6 5.9 7.6 (4.0-11.0) th/mm3 RBC 4.12 L 3.90 L 3.84 L (4.50-5.90) mil/mm3 Hgb 12.9 L 12.3 L 12.1 L (13.0-17.0) gm/dL Hct 37.8 L 36.2 L 36.2 L (39.0-51.0) % Plt Count 170 156 153 (150-450) th/mm3 Neut # (Auto) 4.2 5.3 6.5 (1.8-7.7) th/mm3 Lymph # (Auto) 2.5 0.6 L 0.7 L (1.0-4.8) th/mm3 [place] # (Auto) 0.7 0.1 0.3 (0.0-0.9) th/mm3 Eos # (Auto) 0.2 0.0 0.0 (0.0-0.4) th/mm3 Baso # (Auto) 0.1 0.0 0.0 (0.0-0.2) th/mm3 Comprehensive Metabolic Panel 03/05/18 03/05/18 03/06/18 Range/Units 00:13 09:07 04:53 Sodium 145 142 140 (136-145) meq/L Potassium 3.5 3.9 4.5 (3.5-5.1) meq/L Chloride 114 H 113 H 110 H (98-107) meq/L Carbon Dioxide 25.7 21.6 23.2 (21.0-32.0) meq/L BUN 19 H 17 27 H (7-18) mg/dL Creatinine 1.10 0.96 1.11 (0.60-1.30) mg/dL Calcium 7.8 L 7.9 L 8.1 L (8.5-10.1) mg/dL AST 78 H (15-37) U/L ALT 111 H (12-78) U/L Alkaline Phosphatase 57 (45-117) U/L Total Protein 6.3 L (6.4-8.2) g/dL Albumin 3.4 (3.4-5.0) g/dL Intake and Output 03/06/18 03/06/18 03/06/18 06:59 14:59 22:59 Intake Total 300 / 300 184 / 184 Output Total 825 / 825 1551 / 1551 Balance -525 / -525 -1367 / -1367 Intake: IV 150 / 150 184 / 184 NS Inj 1,000 ML @ 100 mls/hr IV 184 / 184 .CONT .Q10H [facility] Rx#:[id number] Levaquin 750 mg Premix Inj 150 150 / 150 ML @ 100 mls/hr IV.SIG Q24H [facility] Rx#:[id number] Oral 150 / 150 Output: Urine 825 / 825 1550 / 1550 Urine/Stool Mix Other: Date of Last Bowel Movement 03/06/18 # Bowel Movements 0 Weight 109.2 kg - Imaging and Cardiology Imaging: Impressions Venous Doppler Study 03/05/18 00:00 CONCLUSION: Negative study. No venous thrombosis of the right lower extremity. Chest X-Ray 03/05/18 00:06 CONCLUSION: Bibasilar consolidation with tiny right effusion and cardiomegaly. This pattern suggests pulmonary edema. Assessment and Plan - Assessment (1) Chest pain, rule out acute myocardial infarction Code(s): R07.9 - Chest pain, unspecified Status: Acute (2) Cardiomyopathy Code(s): I42.9 - Cardiomyopathy, unspecified Status: Acute (3) Diabetes Code(s): E11.9 - Type 2 diabetes mellitus without complications Status: Acute (4) Hyperlipidemia Code(s): E78.5 - Hyperlipidemia, unspecified Status: Acute (5) Rhabdomyolysis Code(s): M62.82 - Rhabdomyolysis Status: Acute (6) SOB (shortness of breath) Code(s): R06.02 - Shortness of breath Status: Acute - Plan Continue to monitor patient on telemetry. Risks factors associated with cardiac catheterization and PCI outweigh the benefits at this time. We will treat conservatively at this time. Will schedule adenosine nuclear stress test tomorrow to evaluate for ischemia. Continue with aggressive cardiac risk factor modification. Continue anticoagulation with full dose ASA. We will continue to monitor patient during his hospitalization. [facility] The patient was seen and evaluated by Dr. Wu who participated in care, management and decision making. - Attending Attestation Patient seen and examined. I reviewed and agree with the evaluation and plan as presented. Echo with moderate LV dysfunction. Troponin borderline. Will schedule adenosine stress test to evaluate for ischemia. Continue conservative management at this time. (5) Rhabdomyolysis Qualifiers: Rhabdomyolysis type: non-traumatic Qualified Code(s): M62.82 - Rhabdomyolysis
[2018-03-06] MEDS ORDERED: Regadenoson Inj 0.4 MG/5 ML Syringe IV.PUSH ONE (18:03)
[2018-03-06 18:35] LABS: Amphetamine Screen,Urine Neg (Neg); Barbiturate Screen,Urine Neg (Neg); Cannabinoid Screen,Urine Neg (Neg); Cocaine Screen,Urine Neg (Neg)
[2018-03-06 18:39] LABS: Opiate Screen,Urine Neg (Neg)
[2018-03-07] MEDS: Sod Chloride 0.9% Inj 1,000 ML IV.CONT SCH ×2 (03:34→14:12)
[2018-03-07] MEDS: Chlorhexidine Gluconate 2% 1 Pack (2 Cloths) TOPICAL SCH (03:35)
[2018-03-07] MEDS: MethylPREDNISolone Sod Succinate Inj 40 MG/ML Vial IV.PUSH SCH ×2 (05:35→14:12)
[2018-03-07] MEDS ORDERED: Regadenoson Inj 0.4 MG/5 ML Syringe IV.PUSH ONE (08:00)
[2018-03-07 08:19] LABS: Baso % (Auto) 0.1 % (0.0-2.0); Hematocrit 38.6 % (39.0-51.0); Hemoglobin 13.1 gm/dL (13.0-17.0); Lymph # (Auto) 1.3 th/mm3 (1.0-4.8); Lymph % (Auto) 11.5 % (9.0-44.0); Mean Corpuscular HGB Conc 33.9 % (32.0-36.0); Mean Corpuscular Hemoglobin 31.4 pg (27.0-34.0); Mean Corpuscular Volume 92.7 fL (80.0-100.0); Mean Platelet Volume 10.6 fL (7.0-11.0); Mono # (Auto) 0.9 th/mm3 (0.0-0.9); Mono % (Auto) 7.7 % (0.0-8.0); Neut # (Auto) 8.9 th/mm3 (1.8-7.7); Neut % (Auto) 80.7 % (16.0-70.0); Platelet Count 168 th/mm3 (150-450); Red Blood Count 4.16 mil/mm3 (4.50-5.90); Red Cell Distribution Width 15.8 % (11.6-17.2); White Blood Count 11.1 th/mm3 (4.0-11.0)
[2018-03-07 08:35] LABS: Albumin 3.4 g/dL (3.4-5.0); Calcium 8.2 mg/dL (8.5-10.1); Carbon Dioxide 26.3 meq/L (21.0-32.0); Magnesium 2.7 mg/dL (1.5-2.5); Phosphorus 3.9 mg/dL (2.5-4.9); Potassium 4.5 meq/L (3.5-5.1)
[2018-03-07] MEDS: Senna/Docusate Sodium 8.6/50 MG Tablet PO SCH ×2 (08:40→21:29)
[2018-03-07] MEDS: Aspirin 325 MG Tablet PO SCH (08:40)
[2018-03-07] MEDS: Insulin Detemir Inj 1,000 UNIT/10 ML Vial SQ SCH ×2 (08:41→21:21)
[2018-03-07] MEDS: Insulin NovoLOG Aspart Correctional Sugar Inj SQ SCH ×4 (08:42→21:29)
[2018-03-07 08:49] LABS: Total Protein 6.4 g/dL (6.4-8.2)
[2018-03-07 09:04] LABS: CKMB Percent 0.5 % (0.0-4.0); Creatine Kinase MB 6.5 ng/mL (0.5-3.6)
--- NOTE | 2018-03-07 11:46 | NM ---
EXAM DATE: 03/07/2018 11:30 AM EST AGE/SEX: 62 years / Male INDICATIONS:Angina. . Chest pain. CLINICAL DATA: This is the patient's initial encounter. Patient reports that signs and symptoms have been present for 2 days and indicates a pain score of 3/10. MEDICAL/SURGICAL HISTORY: Diabetes mellitus type II. Fusion, lumbar. COMPARISON: No prior exams available for comparison. DOSE: 10.3 mCi Tc 99m Myoview at rest 30.2 mCi [id number] at stress 0.4 mg Lexiscan STRESS SYMPTOMS: Short of breath. EJECTION FRACTION: 24 % TECHNIQUE: The patient underwent pharmacologic stress with infusion of prescribed dose. Continuous ECG tracing was monitored during stress. Gated SPECT imaging was performed after stress and conventi onal SPECT imaging was performed at rest. The examination was performed on a SPECT/CT scanner, both attenuation and non-corrected datasets were reviewed. FINDINGS: Distribution: The maximum perfused segment at stress is in the lateral wall. Perfusion Study: Fixed defects are noted involving the septum, apex, inferior wall and lateral wall i ndicating infarcts in the LAD, RCA and LCx distribution. No reversible defects are noted to suggest i schemia. Gated Study: Severe global hypokinesis is noted. The ejection fraction is calculated at 24%. RISK CATEGORY: High (>3% Annual Mortality Rate) CONCLUSION: 1. Severe global hypokinesis with left ventricular ejection fraction calculated at 24%. 2. Fixed defects involving the septum, apex, inferior wall and lateral wall indicating infarcts in t he LAD, RCA and LCx distributions. 3. No reversible defects to suggest ischemia. Electronically signed by: Matteo Stuart MD Board Certified Radiologist 03/07/2018 11:44 AM EST
--- NOTE | 2018-03-07 12:15 | P.PNCA ---
Subjective Interval history: Patient denies any CP, pressure, palpitations, dizziness, edema or SOB. Patient states that he feels ok today. Medications and Allergies Allergies Allergy/AdvReac Type Severity Reaction Status Date / Time No Known Allergies Allergy Verified 03/05/18 00:05 Home Medications Medication Instructions Recorded Confirmed Type aspirin [Aspir-81] 81 mg PO DAILY 03/04/18 03/04/18 History insulin NPH isoph U-100 human 52 unit SUBCUT BID 03/04/18 03/04/18 History [Novolin N NPH U-100 Insulin] insulin regular human [Novolin R 3 unit IM Q1H 03/04/18 03/04/18 History Regular U-100 Insuln] Active Medications: Active Medications Acetaminophen (Tylenol) 650 mg PO Q4H PRN PRN Reason: Temp > 100.4 Al Hydroxide/Mg Hydroxide (Milk Of Alice Liq) 30 ml PO Q12H PRN PRN Reason: Mild Constipation Albuterol (Duoneb Neb ([facility])) 1 ampul NEB Q6HR WHILE AWAKE NEB [facility] Last Admin: 03/07/18 07:54 Dose: 1 ampul Albuterol (Duoneb Neb (Prn)) 1 ampul NEB Q2HR NEB PRN PRN Reason: sob Albuterol (Albuterol Neb (Prn)) 2.5 mg NEB DAILY [facility] PRN PRN Reason: SHORTNESS OF BREATH/WHEEZING Albuterol (Duoneb Neb (Prn)) 1 ampul NEB DAILY [facility]B PRN PRN Reason: SHORTNESS OF BREATH/WHEEZING Aspirin (Aspirin) 325 mg PO DAILY [facility] Last Admin: 03/07/18 08:40 Dose: 325 mg Bisacodyl (Dulcolax Supp) 10 mg RECTAL DAILY PRN PRN Reason: SEVERE CONSITIPATION Chlorhexidine Gluconate (Chlorhexidine 2% Cloth) 3 pack TOPICAL DAILY@0400 [facility] Stop: 03/11/18 03:59 Last Admin: 03/07/18 03:35 Dose: Not Given Chlorhexidine Gluconate (Chlorhexidine 2% Cloth) 3 pack TOPICAL DAILY@0400 PRN PRN Reason: Extra cloth needed Stop: 03/11/18 03:59 Dextrose (D50w Vial) 50 ml IV.PUSH UNSCH PRN PRN Reason: PER HYPOGLYCEMIA PROTOCOL Furosemide (Lasix Inj) 40 mg IV.PUSH BID@0900,1800 [facility] Last Admin: 03/07/18 08:40 Dose: 40 mg Glucagon (Glucagon Inj) 1 mg OTHER PRN PRN PRN Reason: for Hypoglycemia Protocol Heparin Sodium (Porcine) (Heparin Inj) 5,000 units SQ Q8HR [facility] Last Admin: 03/06/18 05:58 Dose: 5,000 units Sodium Chloride (Ns Inj) 1,000 mls @ 100 mls/hr IV.CONT .Q10H [facility] Last Admin: 03/07/18 03:34 Dose: 100 mls/hr Levofloxacin/Dextrose (Levaquin 750 Mg Premix Inj) 150 mls @ 100 mls/hr IV.SIG Q24H [facility] Last Infusion: 03/07/18 01:40 Dose: Infused Insulin Aspart (Novolog Insulin Correctional Sugar Inj) 0 unit SQ ACHS [facility]; Protocol Last Admin: 03/07/18 08:42 Dose: Not Given Insulin Detemir (Levemir Inj) 20 unit SQ BID [facility] Last Admin: 03/07/18 08:41 Dose: 20 unit Lactulose (Lactulose Liq) 30 ml PO DAILY PRN PRN Reason: SEVERE CONSITIPATION Methylprednisolone Sodium Succinate (Solumedrol Inj) 40 mg IV.PUSH Q8HR [facility] Last Admin: 03/07/18 05:35 Dose: 40 mg Nitroglycerin (Nitro-Bid 2% Oint) 1 inch TOPICAL Q6HR [facility] Last Admin: 03/07/18 05:35 Dose: 1 inch Ondansetron HCl (Zofran Inj) 4 mg IV.PUSH Q6H PRN PRN Reason: NAUSEA OR VOMITING Last Admin: 03/05/18 15:42 Dose: 4 mg Potassium Chloride (K-Dur) 20 meq PO BID [facility] Last Admin: 03/07/18 08:40 Dose: 20 meq Senna/Docusate Sodium (Selene-Colace) 1 tab PO BID [facility] Last Admin: 03/07/18 08:40 Dose: 1 tab Sennosides (Senokot) 17.2 mg PO Q12H PRN PRN Reason: Moderate Constipation Sodium Chloride (Ns Flush) 2 ml IV.FLUSH PRN PRN PRN Reason: FLUSH AFTER USING IV ACCESS Sodium Chloride (Ns Flush) 2 ml IV.FLUSH BID [facility] Last Admin: 03/07/18 08:42 Dose: 2 ml Physical Exam Vital signs: Vital Signs 03/06/18 14:00 03/06/18 16:00 03/06/18 20:00 Temperature 98.0 F 97.6 F Pulse Rate 100 H 103 H 99 H Respiratory Rate 18 20 Blood Pressure 125/64 122/60 Pulse Oximetry 99 03/06/18 20:22 03/07/18 00:00 03/07/18 04:00 Temperature 97.7 F 97.7 F Pulse Rate 86 98 H 87 Respiratory Rate 20 18 18 Blood Pressure 107/65 95/51 L Pulse Oximetry 95 94 L 95 03/07/18 07:54 03/07/18 08:00 03/07/18 10:53 Temperature 97.5 F L Pulse Rate 93 H 90 90 Respiratory Rate 14 18 Blood Pressure 122/60 Pulse Oximetry 94 L 96 Intake & Output 03/06/18 03/07/18 03/07/18 18:59 06:59 18:59 Intake Total 1184 / 1184 1390 / 1390 Output Total 1751 / 1751 2400 / 2400 Balance -567 / -567 -1010 / -1010 Weight 105.6 kg Intake: IV 1184 / 1184 1150 / 1150 NS Inj 1,000 ML @ 100 mls/hr IV 1184 / 1184 1000 / 1000 .CONT .Q10H [facility] Rx#:[id number] Levaquin 750 mg Premix Inj 150 150 / 150 ML @ 100 mls/hr IV.SIG Q24H [facility] Rx#:[id number] Oral 240 / 240 Output: Urine 1750 / 1750 2400 / 2400 Urine/Stool Mix Other: Date of Last Bowel Movement 03/06/18 03/06/18 # Bowel Movements 0 - Constitutional no acute distress - Routine HEENT Exam Head: Present: normocephalic Eye: Present: PERRL ENT: Present: mucous membranes moist - Routine Neck Exam Present: full ROM - Routine Respiratory Exam Present: accessory muscle use - Routine Cardiovascular Exam Present: S1, S2. Absent: murmur, gallop, rubs - Routine Abdominal Exam Present: normoactive bowel sounds - Routine Extremities Exam Present: full ROM, pulses intact, normal capillary refill. Absent: cyanosis, clubbing, edema - Routine Skin Exam Present: intact - Routine Neurological Exam Present: oriented X3 - Detailed Neurological Exam: Coma Scale Eye Opening: Spontaneous Verbal Response: Oriented Motor Response: Obey commands Suzi Coma Scale Total: 15 - Routine Psychiatric Exam Present: normal affect Results 03/07/18 07:40 03/07/18 07:40 Cardiac Enzymes 03/05/18 03/05/18 03/06/18 Range/Units 09:08 13:41 04:53 AST (15-37) U/L CK-MB (CK-2) 9.9 H 8.2 H (0.5-3.6) ng/mL Troponin I 0.05 (0.02-0.05) ng/mL B-Natriuretic Peptide 157 H (0-100) pg/mL 03/07/18 Range/Units 07:40 AST 59 H (15-37) U/L CK-MB (CK-2) 6.5 H (0.5-3.6) ng/mL Troponin I (0.02-0.05) ng/mL B-Natriuretic Peptide (0-100) pg/mL Coagulation 03/05/18 Range/Units 09:08 B-Natriuretic Peptide 157 H (0-100) pg/mL CBC 03/06/18 03/07/18 Range/Units 04:53 07:40 WBC 7.6 11.1 H (4.0-11.0) th/mm3 RBC 3.84 L 4.16 L (4.50-5.90) mil/mm3 Hgb 12.1 L 13.1 (13.0-17.0) gm/dL Hct 36.2 L 38.6 L (39.0-51.0) % Plt Count 153 168 (150-450) th/mm3 Neut # (Auto) 6.5 8.9 H (1.8-7.7) th/mm3 Lymph # (Auto) 0.7 L 1.3 (1.0-4.8) th/mm3 [place] # (Auto) 0.3 0.9 (0.0-0.9) th/mm3 Eos # (Auto) 0.0 0.0 (0.0-0.4) th/mm3 Baso # (Auto) 0.0 0.0 (0.0-0.2) th/mm3 Comprehensive Metabolic Panel 03/06/18 03/07/18 Range/Units 04:53 07:40 Sodium 140 140 (136-145) meq/L Potassium 4.5 4.5 (3.5-5.1) meq/L Chloride 110 H 107 (98-107) meq/L Carbon Dioxide 23.2 26.3 (21.0-32.0) meq/L BUN 27 H 34 H (7-18) mg/dL Creatinine 1.11 1.16 (0.60-1.30) mg/dL Calcium 8.1 L 8.2 L (8.5-10.1) mg/dL Direct Bilirubin 0.2 (0.0-0.2) mg/dL Indirect Bilirubin 0.4 (0.0-0.8) mg/dL AST 59 H (15-37) U/L ALT 161 H (12-78) U/L Alkaline Phosphatase 48 (45-117) U/L Total Protein 6.4 (6.4-8.2) g/dL Albumin 3.4 (3.4-5.0) g/dL Intake and Output 03/06/18 03/07/18 03/07/18 22:59 06:59 14:59 Intake Total 1000 / 1000 1390 / 1390 Output Total 200 / 200 2400 / 2400 Balance 800 / 800 -1010 / -1010 Intake: IV 1000 / 1000 1150 / 1150 NS Inj 1,000 ML @ 100 mls/hr IV 1000 / 1000 1000 / 1000 .CONT .Q10H [facility] Rx#:[id number] Levaquin 750 mg Premix Inj 150 150 / 150 ML @ 100 mls/hr IV.SIG Q24H [facility] Rx#:[id number] Oral 240 / 240 Output: Urine 200 / 200 2400 / 2400 Other: Date of Last Bowel Movement 03/06/18 # Bowel Movements 0 Weight 105.6 kg - Imaging and Cardiology Imaging: Impressions Venous Doppler Study 03/05/18 00:00 CONCLUSION: Negative study. No venous thrombosis of the right lower extremity. Myocardial Perfusion Scan Nuc Med 03/07/18 08:00 CONCLUSION: 1. Severe global hypokinesis with left ventricular ejection fraction calculated at 24%. 2. Fixed defects involving the septum, apex, inferior wall and lateral wall indicating infarcts in the LAD, RCA and LCx distributions. 3. No reversible defects to suggest ischemia. Assessment and Plan - Assessment (1) Chest pain, rule out acute myocardial infarction Code(s): R07.9 - Chest pain, unspecified Status: Acute (2) Cardiomyopathy Code(s): I42.9 - Cardiomyopathy, unspecified Status: Acute (3) Diabetes Code(s): E11.9 - Type 2 diabetes mellitus without complications Status: Acute (4) Hyperlipidemia Code(s): E78.5 - Hyperlipidemia, unspecified Status: Acute (5) Rhabdomyolysis Code(s): M62.82 - Rhabdomyolysis Status: Acute (6) SOB (shortness of breath) Code(s): R06.02 - Shortness of breath Status: Acute - Plan Nuc. stress test today showed severe global hypokinesis, EF 24%, fixed defects involving the septum, apex, inferior wall and lateral wall indicating infarcts in the LAD, RCA and LCx, no reversible defects. We will start Lisinopril 10mg PO QD, Coreg 3.125 mg PO BID and furosemide 20mg PO QD for CHF treatment. We will monitor BMP daily. We will continue to monitor patient on telemetry. Continue with aggressive cardiac risk factor modification. We will continue anticoagulation with full dose ASA. We will continue to monitor patient during his hospitalization. [facility] The patient was seen and evaluated by Dr. Wu who participated in care, management and decision making. - Attending Attestation Patient seen and examined. I reviewed and agree with the evaluation and plan as presented. Nuc ST showed severe LV dysfunction c/w isch CM, no ischemia. Start tx for CHF, continue diuresis. Increase activity. (5) Rhabdomyolysis Qualifiers: Rhabdomyolysis type: non-traumatic Qualified Code(s): M62.82 - Rhabdomyolysis
[2018-03-07] MEDS ORDERED: Lisinopril 10 MG Tablet PO SCH (12:30)
--- NOTE | 2018-03-07 17:00 | P.PNIM ---
Subjective Interval history: Patient seen and examined at the bedside denied fever or chills still with SOB denied palpitation no chest pain + neuropathy in legs Physical Exam Vital signs: Vital Signs 03/06/18 20:00 03/06/18 20:22 03/07/18 00:00 Temperature 97.6 F 97.7 F Pulse Rate 99 H 86 98 H Respiratory Rate 20 20 18 Blood Pressure 122/60 107/65 Pulse Oximetry 95 94 L 03/07/18 04:00 03/07/18 07:54 03/07/18 08:00 Temperature 97.7 F 97.5 F L Pulse Rate 87 93 H 90 Respiratory Rate 18 14 18 Blood Pressure 95/51 L 122/60 Pulse Oximetry 95 94 L 96 03/07/18 10:53 03/07/18 12:00 03/07/18 14:15 Temperature 97.4 F L Pulse Rate 90 100 H 94 H Respiratory Rate 18 18 Blood Pressure 114/58 L Pulse Oximetry 97 03/07/18 16:00 Temperature 97.9 F Pulse Rate 90 Respiratory Rate 18 Blood Pressure 116/56 L Pulse Oximetry 95 Intake & Output 03/06/18 03/07/18 03/07/18 18:59 06:59 18:59 Intake Total 1184 / 1184 1390 / 1390 184 / 184 Output Total 1751 / 1751 2400 / 2400 Balance -567 / -567 -1010 / -1010 184 / 184 Weight 105.6 kg Intake: IV 1184 / 1184 1150 / 1150 184 / 184 NS Inj 1,000 ML @ 100 mls/hr IV 1184 / 1184 1000 / 1000 184 / 184 .CONT .Q10H [facility] Rx#:[id number] Levaquin 750 mg Premix Inj 150 150 / 150 ML @ 100 mls/hr IV.SIG Q24H [facility] Rx#:[id number] Oral 240 / 240 Output: Urine 1750 / 1750 2400 / 2400 Urine/Stool Mix Other: Date of Last Bowel Movement 03/06/18 03/06/18 # Bowel Movements 0 Narrative: GENERAL: Patient lying in bed. Sleeping. Wakes up for exam. Appears comfortable. SKIN: Warm and dry. HEAD: Normocephalic. EYES: No scleral icterus. No injection or drainage. NECK: Supple, trachea midline. No JVD. CARDIOVASCULAR: Regular rate and rhythm without murmurs, gallops, or rubs. RESPIRATORY: Breath sounds equal bilaterally. No accessory muscle use. GASTROINTESTINAL: Abdomen soft, non-tender, nondistended. MUSCULOSKELETAL: No cyanosis, or edema. BACK: Nontender without obvious deformity. No CVA tenderness. Results Labs CBC & Chem 7: 03/07/18 07:40 03/07/18 07:40 Labs: Microbiology 03/05/18 01:50 Blood - Peripheral Aerobic Blood Culture - Preliminary No growth in 2 days 03/05/18 01:50 Blood - Peripheral Anaerobic Blood Culture - Preliminary No growth in 2 days 03/05/18 01:55 Blood - Peripheral Aerobic Blood Culture - Preliminary No growth in 2 days 03/05/18 01:55 Blood - Peripheral Anaerobic Blood Culture - Preliminary No growth in 2 days Imaging Imaging: Impressions Myocardial Perfusion Scan Nuc Med 03/07/18 08:00 CONCLUSION: 1. Severe global hypokinesis with left ventricular ejection fraction calculated at 24%. 2. Fixed defects involving the septum, apex, inferior wall and lateral wall indicating infarcts in the LAD, RCA and LCx distributions. 3. No reversible defects to suggest ischemia. Assessment and Plan (1) Chest pain, rule out acute myocardial infarction: Code(s): R07.9 - Chest pain, unspecified Status: Acute (2) Cardiomyopathy: Code(s): I42.9 - Cardiomyopathy, unspecified Status: Acute (3) Diabetes: Code(s): E11.9 - Type 2 diabetes mellitus without complications Status: Acute (4) Hyperlipidemia: Code(s): E78.5 - Hyperlipidemia, unspecified Status: Acute (5) Rhabdomyolysis: Code(s): M62.82 - Rhabdomyolysis Status: Acute (6) SOB (shortness of breath): Code(s): R06.02 - Shortness of breath Status: Acute Plan Patient is a 62 year old male with history of DM ( on insulin) and HLD who presented to [place] for worsening SOB in Recumbant position and cough concerning for possible CHF exacerbation with concurent URI vs pneumonia' Cardiology: CAD - Stress test concerning for severely reduced LV function, hypokinesis, and reduced EF < 35%. Case discussed with cardiology. No active ischemia appreciated. At this time given patients other clinical factors, medical management is recommended. - continue medications as ordered. - tele monitoring - Lasix diuresis goal of 1-1.5L negative - maintain K > 4 and Mg > 2 - will discuss ICD with cardiology. Rheum: Rhabdo - patient CPK levels improving - hold fluids while on lasix - CPK for am Endocrinology: DM w/ neuropathy - trial of lyrica 75mg BID - continue insulin regimen - education provided re: optho and podiatry as outpatient Pulmonary: Cough, SOB - could be secondary to CHF with fluid overload vs pneumonia. Send pro-antony level. - continue levaquin for now Patient care: back stiffness, weakness - PT eval code: fc dvt ppx dispo: medical surg Progress Note: Quality VTE Deep Vein Thrombosis/Pulmonary Embolism Present on Admission: No _ (1) Cardiomyopathy Qualifiers: Cardiomyopathy type: (2) Diabetes Qualifiers: Diabetes mellitus type: Diabetes mellitus intermediate accountant insulin use: Diabetes mellitus complication status: Diabetes mellitus complication detail: Diabetic retinopathy severity: Proliferative retinopathy type: Diabetes mellitus macular edema: Laterality: Chronic kidney disease stage: (3) Hyperlipidemia Qualifiers: Hyperlipidemia type: (4) Rhabdomyolysis Qualifiers: Encounter type: Rhabdomyolysis type: non-traumatic Qualified Code(s): M62.82 - Rhabdomyolysis
[2018-03-07] MEDS: Furosemide 20 MG Tablet PO SCH (17:53)
[2018-03-07] MEDS: Pregabalin 75 MG Capsule PO SCH (21:23)
[2018-03-08] MEDS: Chlorhexidine Gluconate 2% 1 Pack (2 Cloths) TOPICAL SCH (03:08)
[2018-03-08 07:47] LABS: Hemoglobin 13.9 gm/dL (13.0-17.0); Mean Corpuscular HGB Conc 34.7 % (32.0-36.0); Mean Corpuscular Volume 92.1 fL (80.0-100.0); Mean Platelet Volume 10.6 fL (7.0-11.0); Platelet Count 159 th/mm3 (150-450); Red Blood Count 4.34 mil/mm3 (4.50-5.90); Red Cell Distribution Width 15.5 % (11.6-17.2); White Blood Count 10.4 th/mm3 (4.0-11.0)
[2018-03-08 07:57] LABS: Carbon Dioxide 28.7 meq/L (21.0-32.0); Magnesium 2.9 mg/dL (1.5-2.5); Potassium 4.3 meq/L (3.5-5.1)
[2018-03-08 08:16] LABS: CKMB Percent 0.6 % (0.0-4.0); Creatine Kinase MB 5.2 ng/mL (0.5-3.6)
[2018-03-08] MEDS: Insulin NovoLOG Aspart Correctional Sugar Inj SQ SCH ×4 (09:13→23:20)
[2018-03-08] MEDS ORDERED: Sodium Chlor 0.9% Inj 500 ML IV.SIG ONE (09:15)
--- NOTE | 2018-03-08 09:24 | XR ---
EXAM DATE: 03/08/2018 9:21 AM EST AGE/SEX: 62 years / Male INDICATIONS: Pleural Effusion. Patient has shortness of breath. CLINICAL DATA: This is the patient's subsequent encounter. Patient reports that signs and symptoms h ave been present for 4 - 6 days and indicates a pain score of 0/10. MEDICAL/SURGICAL HISTORY: . 2 heart attacks. Pneumonia. None. COMPARISON: [facility] [place], CHEST 1V SINGLE AP, 03/05/2018. . FINDINGS: There has been interval improved aeration of lungs compared to the previous examination. Mild residua l perihilar infiltrates are noted consistent with possible residual pulmonary vascular congestion or pneumonia. The heart is stable. CONCLUSION: Interval improved aeration of lungs compared to the previous examination. Mild residual perihilar inf iltrates are noted consistent with possible residual pulmonary vascular congestion or pneumonia Electronically signed by: Matteo Stuart MD Board Certified Radiologist 03/08/2018 9:23 AM EST
[2018-03-08] MEDS: Insulin Detemir Inj 1,000 UNIT/10 ML Vial SQ SCH ×2 (09:25→23:20)
[2018-03-08] MEDS: Aspirin 325 MG Tablet PO SCH (09:26)
[2018-03-08] MEDS: Senna/Docusate Sodium 8.6/50 MG Tablet PO SCH ×2 (09:26→23:00)
[2018-03-08] MEDS: Furosemide 20 MG Tablet PO SCH ×2 (09:34→17:38)
[2018-03-08] MEDS ORDERED: Sodium Chlor 0.9% Inj 250 ML IV.SIG PRN (10:07)
[2018-03-08] MEDS: Pregabalin 75 MG Capsule PO SCH ×2 (10:18→23:00)
[2018-03-08] MEDS: Lisinopril 5 MG Tablet PO SCH (10:21)
--- NOTE | 2018-03-08 14:05 | P.PNCA ---
Subjective Interval history: Patient denies any CP, pressure, palpitations, edema or SOB. Patient does complain of mild dizziness when getting up. Medications and Allergies Allergies Allergy/AdvReac Type Severity Reaction Status Date / Time No Known Allergies Allergy Verified 03/05/18 00:05 Home Medications Medication Instructions Recorded Confirmed Type aspirin [Aspir-81] 81 mg PO DAILY 03/04/18 03/04/18 History insulin NPH isoph U-100 human 52 unit SUBCUT BID 03/04/18 03/04/18 History [Novolin N NPH U-100 Insulin] insulin regular human [Novolin R 3 unit IM Q1H 03/04/18 03/04/18 History Regular U-100 Insuln] Active Medications: Active Medications Acetaminophen (Tylenol) 650 mg PO Q4H PRN PRN Reason: Temp > 100.4 Al Hydroxide/Mg Hydroxide (Milk Of Alice Liq) 30 ml PO Q12H PRN PRN Reason: Mild Constipation Albuterol (Duoneb Neb ([facility])) 1 ampul NEB Q6HR WHILE AWAKE NEB [facility] Last Admin: 03/08/18 11:55 Dose: 1 ampul Albuterol (Duoneb Neb (Prn)) 1 ampul NEB Q2HR NEB PRN PRN Reason: sob Albuterol (Albuterol Neb (Prn)) 2.5 mg NEB DAILY NEB PRN PRN Reason: SHORTNESS OF BREATH/WHEEZING Albuterol (Duoneb Neb (Prn)) 1 ampul NEB DAILY NEB PRN PRN Reason: SHORTNESS OF BREATH/WHEEZING Aspirin (Aspirin) 325 mg PO DAILY [facility] Last Admin: 03/08/18 09:26 Dose: 325 mg Bisacodyl (Dulcolax Supp) 10 mg RECTAL DAILY PRN PRN Reason: SEVERE CONSITIPATION Carvedilol (Coreg) 3.125 mg PO BID [facility] Last Admin: 03/08/18 09:34 Dose: 3.125 mg Chlorhexidine Gluconate (Chlorhexidine 2% Cloth) 3 pack TOPICAL DAILY@0400 [facility] Stop: 03/11/18 03:59 Last Admin: 03/08/18 03:08 Dose: Not Given Chlorhexidine Gluconate (Chlorhexidine 2% Cloth) 3 pack TOPICAL DAILY@0400 PRN PRN Reason: Extra cloth needed Stop: 03/11/18 03:59 Dextrose (D50w Vial) 50 ml IV.PUSH UNSCH PRN PRN Reason: PER HYPOGLYCEMIA PROTOCOL Furosemide (Lasix) 20 mg PO BID@0900,1800 [facility] Last Admin: 03/08/18 09:34 Dose: 20 mg Glucagon (Glucagon Inj) 1 mg OTHER PRN PRN PRN Reason: for Hypoglycemia Protocol Heparin Sodium (Porcine) (Heparin Inj) 5,000 units SQ Q8HR [facility] Last Admin: 03/06/18 05:58 Dose: 5,000 units Sodium Chloride (Ns Inj) 250 mls @ 999 mls/hr IV.SIG ONCE PRN PRN Reason: SBP<90 Insulin Aspart (Novolog Insulin Correctional Sugar Inj) 0 unit SQ ACHS [facility]; Protocol Last Admin: 03/08/18 11:46 Dose: Not Given Insulin Detemir (Levemir Inj) 20 unit SQ BID [facility] Last Admin: 03/08/18 09:25 Dose: 20 unit Lactulose (Lactulose Liq) 30 ml PO DAILY PRN PRN Reason: SEVERE CONSITIPATION Levofloxacin (Levaquin) 750 mg PO DAILY [facility] Lisinopril (Prinivil) 2.5 mg PO DAILY [facility] Last Admin: 03/08/18 10:21 Dose: 2.5 mg Miscellaneous (Pill Splitter) 1 each OTHER UNSCH PRN PRN Reason: PILL SPLITTING Nitroglycerin (Nitro-Bid 2% Oint) 1 inch TOPICAL Q6HR [facility] Last Admin: 03/08/18 12:05 Dose: 1 inch Ondansetron HCl (Zofran Inj) 4 mg IV.PUSH Q6H PRN PRN Reason: NAUSEA OR VOMITING Last Admin: 03/05/18 15:42 Dose: 4 mg Potassium Chloride (K-Dur) 20 meq PO BID [facility] Last Admin: 03/08/18 09:26 Dose: 20 meq Pregabalin (Lyrica) 75 mg PO BID [facility] Last Admin: 03/08/18 10:18 Dose: 75 mg Senna/Docusate Sodium (Selene-Colace) 1 tab PO BID [facility] Last Admin: 03/08/18 09:26 Dose: 1 tab Sennosides (Senokot) 17.2 mg PO Q12H PRN PRN Reason: Moderate Constipation Sodium Chloride (Ns Flush) 2 ml IV.FLUSH PRN PRN PRN Reason: FLUSH AFTER USING IV ACCESS Sodium Chloride (Ns Flush) 2 ml IV.FLUSH BID [facility] Last Admin: 03/08/18 09:33 Dose: 2 ml Physical Exam Vital signs: Vital Signs 03/07/18 14:15 03/07/18 16:00 03/07/18 19:00 Temperature 97.9 F Pulse Rate 94 H 85 87 Respiratory Rate 18 18 18 Blood Pressure 116/56 L Pulse Oximetry 95 03/07/18 20:00 03/08/18 00:00 03/08/18 04:00 Temperature 98.3 F 98 F 97.4 F L Pulse Rate 85 89 92 H Respiratory Rate 18 17 18 Blood Pressure 107/54 L 107/53 L 107/64 Pulse Oximetry 92 L 93 L 92 L 03/08/18 07:58 03/08/18 08:00 03/08/18 08:45 Temperature 98.3 F Pulse Rate 89 84 80 Respiratory Rate 20 18 Blood Pressure 88/56 L Pulse Oximetry 95 03/08/18 11:56 03/08/18 12:00 Temperature 97.7 F Pulse Rate 86 76 Respiratory Rate 18 18 Blood Pressure 106/58 L Pulse Oximetry 92 L Intake & Output 03/07/18 03/08/18 03/08/18 18:59 06:59 18:59 Intake Total 544 / 544 1470 / 1470 Output Total 600 / 600 900 / 900 Balance -56 / -56 570 / 570 Weight 98.9 kg Intake: IV 184 / 184 1050 / 1050 NS Inj 1,000 ML @ 100 mls/hr IV 184 / 184 900 / 900 .CONT .Q10H [facility] Rx#:[id number] Levaquin 750 mg Premix Inj 150 150 / 150 ML @ 100 mls/hr IV.SIG Q24H [facility] Rx#:[id number] Oral 360 / 360 420 / 420 Output: Urine 600 / 600 900 / 900 Other: # Voids 2 Date of Last Bowel Movement 03/08/18 - Constitutional no acute distress - Routine HEENT Exam Head: Present: normocephalic Eye: Present: PERRL ENT: Present: mucous membranes moist - Routine Neck Exam Present: full ROM - Routine Respiratory Exam Present: CTA bilaterally - Routine Cardiovascular Exam Present: S1, S2. Absent: murmur, gallop, rubs - Routine Abdominal Exam Present: normoactive bowel sounds - Routine Extremities Exam Present: full ROM, pulses intact, normal capillary refill. Absent: cyanosis, clubbing, edema - Routine Skin Exam Present: intact - Routine Neurological Exam Present: oriented X3 - Detailed Neurological Exam: Coma Scale Eye Opening: Spontaneous Verbal Response: Oriented Motor Response: Obey commands Suzi Coma Scale Total: 15 - Routine Psychiatric Exam Present: normal affect Results 03/08/18 07:15 03/08/18 07:15 Cardiac Enzymes 03/07/18 03/08/18 Range/Units 07:40 07:15 AST 59 H (15-37) U/L CK-MB (CK-2) 6.5 H 5.2 H (0.5-3.6) ng/mL CBC 03/07/18 03/08/18 Range/Units 07:40 07:15 WBC 11.1 H 10.4 (4.0-11.0) th/mm3 RBC 4.16 L 4.34 L (4.50-5.90) mil/mm3 Hgb 13.1 13.9 (13.0-17.0) gm/dL Hct 38.6 L 40.0 (39.0-51.0) % Plt Count 168 159 (150-450) th/mm3 Neut # (Auto) 8.9 H (1.8-7.7) th/mm3 Lymph # (Auto) 1.3 (1.0-4.8) th/mm3 Bennett # (Auto) 0.9 (0.0-0.9) th/mm3 Eos # (Auto) 0.0 (0.0-0.4) th/mm3 Baso # (Auto) 0.0 (0.0-0.2) th/mm3 Comprehensive Metabolic Panel 03/07/18 03/08/18 Range/Units 07:40 07:15 Sodium 140 140 (136-145) meq/L Potassium 4.5 4.3 (3.5-5.1) meq/L Chloride 107 106 (98-107) meq/L Carbon Dioxide 26.3 28.7 (21.0-32.0) meq/L BUN 34 H 36 H (7-18) mg/dL Creatinine 1.16 1.08 (0.60-1.30) mg/dL Calcium 8.2 L 8.0 L (8.5-10.1) mg/dL Direct Bilirubin 0.2 (0.0-0.2) mg/dL Indirect Bilirubin 0.4 (0.0-0.8) mg/dL AST 59 H (15-37) U/L ALT 161 H (12-78) U/L Alkaline Phosphatase 48 (45-117) U/L Total Protein 6.4 (6.4-8.2) g/dL Albumin 3.4 (3.4-5.0) g/dL Intake and Output 03/07/18 03/08/18 03/08/18 22:59 06:59 14:59 Intake Total 360 / 360 1470 / 1470 Output Total 600 / 600 900 / 900 Balance -240 / -240 570 / 570 Intake: IV 1050 / 1050 NS Inj 1,000 ML @ 100 mls/hr IV 900 / 900 .CONT .Q10H [facility] Rx#:[id number] Levaquin 750 mg Premix Inj 150 150 / 150 ML @ 100 mls/hr IV.SIG Q24H [facility] Rx#:[id number] Oral 360 / 360 420 / 420 Output: Urine 600 / 600 900 / 900 Other: # Voids 2 Date of Last Bowel Movement 03/08/18 Weight 98.9 kg - Imaging and Cardiology Imaging: Impressions Myocardial Perfusion Scan Nuc Med 03/07/18 08:00 CONCLUSION: 1. Severe global hypokinesis with left ventricular ejection fraction calculated at 24%. 2. Fixed defects involving the septum, apex, inferior wall and lateral wall indicating infarcts in the LAD, RCA and LCx distributions. 3. No reversible defects to suggest ischemia. Chest X-Ray 03/08/18 00:00 CONCLUSION: Interval improved aeration of lungs compared to the previous examination. Mild residual perihilar infiltrates are noted consistent with possible residual pulmonary vascular congestion or pneumonia Assessment and Plan - Assessment (1) Chest pain, rule out acute myocardial infarction Code(s): R07.9 - Chest pain, unspecified Status: Acute (2) Cardiomyopathy Code(s): I42.9 - Cardiomyopathy, unspecified Status: Acute (3) Diabetes Code(s): E11.9 - Type 2 diabetes mellitus without complications Status: Acute (4) Hyperlipidemia Code(s): E78.5 - Hyperlipidemia, unspecified Status: Acute (5) Rhabdomyolysis Code(s): M62.82 - Rhabdomyolysis Status: Acute (6) SOB (shortness of breath) Code(s): R06.02 - Shortness of breath Status: Acute - Plan Patient had a few episodes of hypotension throughout the night. BP is WNL now, we will continue to monitor and adjust medications for CHF. Continue with aggressive cardiac risk factor modifications. BMP today evaluated, kidney function remains stable along with potassium levels. We will continue to monitor patient on telemetry. We will continue full dose ASA. Nuc. stress test today showed severe global hypokinesis, EF 24%, fixed defects involving the septum, apex, inferior wall and lateral wall c/w NICM, no reversible defects. We will continue to monitor the patient during his hospitalization. [facility] The patient was seen and evaluated by Dr. Wu who participated in care, management and decision making. - Attending Attestation Patient seen and examined. I reviewed and agree with the evaluation and plan as presented. Continue tx for CHF including ARDHA-I, beta liz and diuresis. [facility]. (5) Rhabdomyolysis Qualifiers: Rhabdomyolysis type: non-traumatic Qualified Code(s): M62.82 - Rhabdomyolysis
--- NOTE | 2018-03-08 17:30 | P.PNIM ---
Subjective Interval history: Patient seen and evaluated this morning at bedside. Patient does report that he had no fever or chills overnight but did feel some tenderness on his left flank region with one episode of nausea. Case briefly discussed with cardiology at this time patient would not be a candidate for an ICD placement. Repeat chest x-ray this morning shows improved aeration. Physical Exam Vital signs: Vital Signs 03/07/18 19:00 03/07/18 20:00 03/08/18 00:00 Temperature 98.3 F 98 F Pulse Rate 87 85 89 Respiratory Rate 18 18 17 Blood Pressure 107/54 L 107/53 L Pulse Oximetry 92 L 93 L 03/08/18 04:00 03/08/18 07:58 03/08/18 08:00 Temperature 97.4 F L 98.3 F Pulse Rate 92 H 89 84 Respiratory Rate 18 20 Blood Pressure 107/64 88/56 L Pulse Oximetry 92 L 03/08/18 08:45 03/08/18 11:56 03/08/18 12:00 Temperature 97.7 F Pulse Rate 80 86 76 Respiratory Rate 18 18 18 Blood Pressure 106/58 L Pulse Oximetry 95 92 L 03/08/18 16:00 Temperature Pulse Rate 87 Respiratory Rate Blood Pressure Pulse Oximetry Intake & Output 03/07/18 03/08/18 03/08/18 18:59 06:59 18:59 Intake Total 544 / 544 1470 / 1470 Output Total 600 / 600 900 / 900 Balance -56 / -56 570 / 570 Weight 98.9 kg Intake: IV 184 / 184 1050 / 1050 NS Inj 1,000 ML @ 100 mls/hr IV 184 / 184 900 / 900 .CONT .Q10H [facility] Rx#:[id number] Levaquin 750 mg Premix Inj 150 150 / 150 ML @ 100 mls/hr IV.SIG Q24H [facility] Rx#:[id number] Oral 360 / 360 420 / 420 Output: Urine 600 / 600 900 / 900 Other: # Voids 2 Date of Last Bowel Movement 03/08/18 GENERAL: Patient lying in bed. NAD SKIN: Warm and dry. HEAD: Normocephalic. EYES: No scleral icterus. No injection or drainage. NECK: Supple, trachea midline. No JVD. CARDIOVASCULAR: Regular rate and rhythm without murmurs, gallops, or rubs. RESPIRATORY: Breath sounds equal bilaterally and mildly reduced at the base but overall pretty clear. No accessory muscle use. GASTROINTESTINAL: Abdomen soft, non-tender, nondistended. MUSCULOSKELETAL: No cyanosis, or edema. BACK: Nontender without obvious deformity. + LEFT CVA tenderness. Results Labs CBC & Chem 7: 03/08/18 07:15 03/08/18 07:15 Labs: Microbiology 03/05/18 01:50 Blood - Peripheral Aerobic Blood Culture - Preliminary No growth in 3 days 03/05/18 01:50 Blood - Peripheral Anaerobic Blood Culture - Preliminary No growth in 3 days 03/05/18 01:55 Blood - Peripheral Aerobic Blood Culture - Preliminary No growth in 3 days 03/05/18 01:55 Blood - Peripheral Anaerobic Blood Culture - Preliminary No growth in 3 days Imaging Imaging: Impressions Chest X-Ray 03/08/18 00:00 CONCLUSION: Interval improved aeration of lungs compared to the previous examination. Mild residual perihilar infiltrates are noted consistent with possible residual pulmonary vascular congestion or pneumonia Assessment and Plan (1) Chest pain, rule out acute myocardial infarction: Code(s): R07.9 - Chest pain, unspecified Status: Acute (2) Cardiomyopathy: Code(s): I42.9 - Cardiomyopathy, unspecified Status: Acute (3) Diabetes: Code(s): E11.9 - Type 2 diabetes mellitus without complications Status: Acute (4) Hyperlipidemia: Code(s): E78.5 - Hyperlipidemia, unspecified Status: Acute (5) Rhabdomyolysis: Code(s): M62.82 - Rhabdomyolysis Status: Acute (6) SOB (shortness of breath): Code(s): R06.02 - Shortness of breath Status: Acute Plan Patient is a 62 year old male with history of DM ( on insulin) and HLD who presented to [place] for worsening SOB in Recumbant position and cough concerning for possible CHF exacerbation with concurent URI vs pneumonia' Cardiology: CAD - Stress test concerning for severely reduced LV function, hypokinesis, and reduced EF < 35%. Case discussed with cardiology. No active ischemia appreciated. At this time given patients other clinical factors, medical management is recommended. - continue medications as ordered. - tele monitoring - Lasix diuresis goal of 1-1.5L negative - maintain K > 4 and Mg > 2 - As per cardiology would not place ICD at this time. - I?O today poor + 514. yesterday -1.577L Nephrology: + Nausea/+CVA - CT abd/pelv with IV contrast to r/o developing pyelo. - UA check Rheum: Rhabdo - patient CPK levels improving. - CPK for am Endocrinology: DM w/ neuropathy - trial of lyrica 75mg BID - continue insulin regimen - education provided re: optho and podiatry as outpatient Pulmonary: Cough, SOB - legionella/pneumococcal negative antigen - could be secondary to CHF with fluid overload vs pneumonia. - continue levaquin for now Patient care: back stiffness, weakness - PT eval code: fc dvt ppx dispo: medical surg Progress Note: Quality VTE Deep Vein Thrombosis/Pulmonary Embolism Present on Admission: No _ (1) Cardiomyopathy Qualifiers: Cardiomyopathy type: (2) Diabetes Qualifiers: Diabetes mellitus type: Diabetes mellitus fci insulin use: Diabetes mellitus complication status: Diabetes mellitus complication detail: Diabetic retinopathy severity: Proliferative retinopathy type: Diabetes mellitus macular edema: Laterality: Chronic kidney disease stage: (3) Hyperlipidemia Qualifiers: Hyperlipidemia type: (4) Rhabdomyolysis Qualifiers: Encounter type: Rhabdomyolysis type: non-traumatic Qualified Code(s): M62.82 - Rhabdomyolysis
--- NOTE | 2018-03-08 19:55 | CT ---
EXAM DATE: 03/08/2018 7:48 PM EST AGE/SEX: 62 years / Male INDICATIONS: Left flank pain, Pyelonephritis CLINICAL DATA: This is the patient's initial encounter. Patient reports that signs and symptoms have been present for 1 day and indicates a pain score of 4/10. MEDICAL/SURGICAL HISTORY: Diabetes. . Back surgery ORAL CONTRAST: No oral contrast ingested. RADIATION DOSE: 10.36 CTDI (mGy) COMPARISON: No prior exams available for comparison. TECHNIQUE: Multiple contiguous axial images were obtained through the abdomen and pelvis following b olus infusion of 97ML ml Omnipaque 350 (iohexol) nonionic water-soluble contrast as a single exam d ose. No oral contrast ingested. Using automated exposure control and adjustment of the mA and/or kV according to patient size, radiation dose was kept as low as reasonably achievable to obtain optimal diagnostic quality images. DICOM format image data is available electronically for review and compar [place]. FINDINGS: Abdomen CT: The liver, spleen, pancreas, kidneys, adrenals are unremarkable. There is no evidence for any stones in the kidneys or the course of the ureters on either side. There is no hydronephrosis. There are no signs of pyelonephritis for technique. There is no evidence for any appreciable pathological adenopathy, free fluid, or bowel obstruction. Tiny bilateral pleural ef fusions are seen. Pelvic CT: There is no evidence for mass, abscess formation, or any significant adenopathy within the pelvis. Th ere is moderate amount of stool in the colon. The prostate gland measures 4.6 x 4.9 cm in AP and transverse diameters inhomogeneous in appearance and nonspecific. CONCLUSION: Essentially unremarkable study. Electronically signed by: Marisol Atkinson MD Board Certified Radiologist 03/08/2018 7:53 PM EST
[2018-03-09 01:23] LABS: Bilirubin,Urine Negative (Negative); Clarity,Urine Clear (Clear); Color,Urine Straw (Yellw/Straw); Glucose,Urine (UA) Negative (Negative); Leukocyte Esterase,Urine Negative (Negative); Nitrite,Urine Negative (Negative); Specific Gravity,Urine 1.035 (1.002-1.035)
[2018-03-09] MEDS: Chlorhexidine Gluconate 2% 1 Pack (2 Cloths) TOPICAL SCH (04:39)
[2018-03-09] MEDS: Insulin NovoLOG Aspart Correctional Sugar Inj SQ SCH ×4 (07:47→20:59)
[2018-03-09] MEDS: Furosemide 20 MG Tablet PO SCH ×2 (09:00→18:17)
[2018-03-09] MEDS: Lisinopril 5 MG Tablet PO SCH (09:00)
[2018-03-09] MEDS: Pregabalin 75 MG Capsule PO SCH ×2 (09:00→20:57)
[2018-03-09] MEDS: Senna/Docusate Sodium 8.6/50 MG Tablet PO SCH ×2 (09:00→20:58)
[2018-03-09] MEDS: Aspirin 325 MG Tablet PO SCH (09:00)
[2018-03-09] MEDS ORDERED: levoFLOXacin 750 MG Tablet PO SCH (09:00)
[2018-03-09] MEDS: Insulin Detemir Inj 1,000 UNIT/10 ML Vial SQ SCH ×2 (09:01→20:59)
[2018-03-09 09:05] LABS: Calcium 8.5 mg/dL (8.5-10.1); Carbon Dioxide 27.7 meq/L (21.0-32.0); Potassium 4.4 meq/L (3.5-5.1)
--- NOTE | 2018-03-09 14:34 | P.PNIM ---
Subjective Interval history: Patient seen and evaluated this morning at bedside Patient reports that he is breathing much better No subjective fever or chill Patient is not complaining of flank pain anymore and likely thinks that he slept on his telemetry box Cardiology recommendations appreciated and slowly decrease the dose of his lisinopril Patient reports that he does not have a definitive [facility] to stay [facility] Will discuss with case management social work team to find out more about where patient will ultimately go after he is discharged. At this moment message could not be left for [facility] team. Patient without safe discharge at this time Physical Exam Vital signs: Vital Signs 03/08/18 16:00 03/08/18 20:00 03/08/18 21:27 Temperature 97.9 F 97.7 F Pulse Rate 80 82 84 Respiratory Rate 18 17 16 Blood Pressure 107/65 108/68 Pulse Oximetry 92 L 94 L 94 L 03/09/18 00:00 03/09/18 04:00 03/09/18 07:38 Temperature 98 F 97 F L Pulse Rate 87 80 76 Respiratory Rate 18 18 16 Blood Pressure 103/66 102/69 Pulse Oximetry 99 95 97 03/09/18 08:00 03/09/18 12:00 Temperature 97.8 F 97.8 F Pulse Rate 78 85 Respiratory Rate 20 18 Blood Pressure 99/75 L 112/82 Pulse Oximetry 100 96 Intake & Output 03/08/18 03/09/18 03/09/18 18:59 06:59 18:59 Intake Total 725 / 725 240 / 240 Output Total 1801 / 1801 Balance -1076 / -1076 240 / 240 Weight 101.8 kg Intake: Oral 725 / 725 240 / 240 Output: Urine 1800 / 1800 Urine/Stool Mix Other: # Voids 2 # Urine Diapers 3 Date of Last Bowel Movement 03/08/18 03/06/18 # Bowel Movements 0 General: No acute distress Cardiovascular: S1/S2 Respiratory: Really clear to auscultation bilaterally no intercostal muscle use Gastroenterology: Soft, nontender, nondistended, no guarding or rebound Urology: No CVA tenderness appreciated unlike yesterday Extremity: No lower extremity edema at all Results Labs CBC & Chem 7: 03/08/18 07:15 03/09/18 07:55 Labs: Microbiology 03/05/18 01:50 Blood - Peripheral Aerobic Blood Culture - Preliminary No growth in 4 days 03/05/18 01:50 Blood - Peripheral Anaerobic Blood Culture - Preliminary No growth in 4 days 03/05/18 01:55 Blood - Peripheral Aerobic Blood Culture - Preliminary No growth in 4 days 03/05/18 01:55 Blood - Peripheral Anaerobic Blood Culture - Preliminary No growth in 4 days Imaging Imaging: Impressions Abdomen/Pelvis CT 03/08/18 00:00 CONCLUSION: Essentially unremarkable study. Assessment and Plan (1) Chest pain, rule out acute myocardial infarction: Code(s): R07.9 - Chest pain, unspecified Status: Acute (2) Cardiomyopathy: Code(s): I42.9 - Cardiomyopathy, unspecified Status: Acute (3) Diabetes: Code(s): E11.9 - Type 2 diabetes mellitus without complications Status: Acute (4) Hyperlipidemia: Code(s): E78.5 - Hyperlipidemia, unspecified Status: Acute (5) Rhabdomyolysis: Code(s): M62.82 - Rhabdomyolysis Status: Acute (6) SOB (shortness of breath): Code(s): R06.02 - Shortness of breath Status: Acute Plan Patient is a 62 year old male with history of DM ( on insulin) and HLD who presented to [place] for worsening SOB in Recumbant position and cough concerning for possible CHF exacerbation with concurent URI vs pneumonia' Cardiology: CAD - Stress test concerning for severely reduced LV function, hypokinesis, and reduced EF < 35%. Case discussed with cardiology. No active ischemia appreciated. At this time given patients other clinical factors, medical management is recommended. - continue medications as ordered. - tele monitoring - Lasix diuresis goal of 1-1.5L negative - maintain K > 4 and Mg > 2 - As per cardiology would not place ICD at this time. Explained to patient that if he is able to tolerate medical therapy first and has follow-[facility] with [facility] on [facility] that he may be considered for alternative therapies as well -Patient appears to be euvolemic at this time Nephrology: + Nausea/+CVA - CT abd/pelv with IV contrast to r/o developing pyelo did not show any evidence of perinephric stranding - UA negative Rheum: Rhabdo - patient CPK levels improving. - CPK for am Endocrinology: DM w/ neuropathy - trial of lyrica 75mg BID - continue insulin regimen - education provided re: optho and podiatry as outpatient Pulmonary: Cough, SOB - legionella/pneumococcal negative antigen - could be secondary to CHF with fluid overload vs pneumonia. - discontinue levaquin Patient care: back stiffness, weakness - PT eval code: fc dvt ppx dispo: medical surg. will need to clarify where patient lives prior to discharge. Progress Note: Quality VTE Deep Vein Thrombosis/Pulmonary Embolism Present on Admission: No _ (1) Cardiomyopathy Qualifiers: Cardiomyopathy type: (2) Diabetes Qualifiers: Diabetes mellitus type: Diabetes mellitus nursing home insulin use: Diabetes mellitus complication status: Diabetes mellitus complication detail: Diabetic retinopathy severity: Proliferative retinopathy type: Diabetes mellitus macular edema: Laterality: Chronic kidney disease stage: (3) Hyperlipidemia Qualifiers: Hyperlipidemia type: (4) Rhabdomyolysis Qualifiers: Encounter type: Rhabdomyolysis type: non-traumatic Qualified Code(s): M62.82 - Rhabdomyolysis
[2018-03-10] MEDS: Chlorhexidine Gluconate 2% 1 Pack (2 Cloths) TOPICAL SCH (05:37)
[2018-03-10] MEDS: Insulin NovoLOG Aspart Correctional Sugar Inj SQ SCH ×4 (08:15→20:57)
[2018-03-10] MEDS: Lisinopril 5 MG Tablet PO SCH (08:50)
[2018-03-10] MEDS: Pregabalin 75 MG Capsule PO SCH ×2 (08:51→20:57)
[2018-03-10] MEDS: Aspirin 325 MG Tablet PO SCH (08:51)
[2018-03-10] MEDS: Furosemide 20 MG Tablet PO SCH (08:51)
[2018-03-10] MEDS: Senna/Docusate Sodium 8.6/50 MG Tablet PO SCH ×2 (08:51→20:57)
[2018-03-10] MEDS: Insulin Detemir Inj 1,000 UNIT/10 ML Vial SQ SCH ×2 (08:52→20:58)
[2018-03-10 12:30] LABS: Calcium 9.1 mg/dL (8.5-10.1); Carbon Dioxide 25.7 meq/L (21.0-32.0); Potassium 4.8 meq/L (3.5-5.1)
[2018-03-10] MEDS ORDERED: Sodium Chlor 0.9% Inj 250 ML IV.SIG SCH (13:13)
--- NOTE | 2018-03-10 13:14 | P.PNIM ---
Subjective Interval history: Mr. Arechiga has been seen and evaluated this morning at bedside. Patient reports that he is breathing well and has no complaints Renal function today increased to 1.42 with slight elevation in BUN concerning for possible prerenal dehydration. We will reduce Lasix dose and monitor chemistry for tomorrow Otherwise patient borderline on the hypotensive side currently 98/55. Still awaiting [facility] contact to discuss disposition as patient reports that [facility] and that he currently has no place to go after discharge Physical Exam Vital signs: Vital Signs 03/09/18 16:00 03/09/18 20:00 03/10/18 00:00 Temperature 98.7 F 98.9 F Pulse Rate 99 H 92 H 94 H Respiratory Rate 18 18 16 Blood Pressure 110/84 113/55 L 102/60 Pulse Oximetry 96 94 L 94 L 03/10/18 04:00 03/10/18 08:00 03/10/18 08:45 Temperature 98.1 F 97.9 F Pulse Rate 81 76 78 Respiratory Rate 14 20 Blood Pressure 84/48 L 98/55 L Pulse Oximetry 95 95 03/10/18 09:36 Temperature Pulse Rate Respiratory Rate Blood Pressure Pulse Oximetry 95 Intake & Output 03/09/18 03/10/18 03/10/18 18:59 06:59 18:59 Intake Total 490 / 490 Output Total 1300 / 1300 1900 / 1900 Balance -1300 / -1300 -1410 / -1410 Weight 101.9 kg Intake: IV 250 / 250 NS Inj 250 ML @ 999 mls/hr IV. 250 / 250 SIG ONCE PRN Rx#:[id number] Oral 240 / 240 Output: Urine 1300 / 1300 1900 / 1900 Other: Date of Last Bowel Movement 03/06/18 03/06/18 general: No acute distress Cardiovascular: S1/S2 Respiratory: Clear to auscultation bilaterally Gastroenterology: Soft, nontender, nondistended, no guarding or rebound appreciated Extremities: 2+ bounding dorsalis pedis pulse, no calf tenderness or edema Results Labs CBC & Chem 7: 03/08/18 07:15 03/10/18 11:30 Labs: Microbiology 03/05/18 01:50 Blood - Peripheral Aerobic Blood Culture - Final No growth in 5 days 03/05/18 01:50 Blood - Peripheral Anaerobic Blood Culture - Final No growth in 5 days 03/05/18 01:55 Blood - Peripheral Aerobic Blood Culture - Final No growth in 5 days 03/05/18 01:55 Blood - Peripheral Anaerobic Blood Culture - Final No growth in 5 days Assessment and Plan (1) Chest pain, rule out acute myocardial infarction: Code(s): R07.9 - Chest pain, unspecified Status: Acute (2) Cardiomyopathy: Code(s): I42.9 - Cardiomyopathy, unspecified Status: Acute (3) Diabetes: Code(s): E11.9 - Type 2 diabetes mellitus without complications Status: Acute (4) Hyperlipidemia: Code(s): E78.5 - Hyperlipidemia, unspecified Status: Acute (5) Rhabdomyolysis: Code(s): M62.82 - Rhabdomyolysis Status: Acute (6) SOB (shortness of breath): Code(s): R06.02 - Shortness of breath Status: Acute Plan Patient is a 62 year old male with history of DM ( on insulin) and HLD who presented to [place] for worsening SOB in Recumbant position and cough concerning for possible CHF exacerbation with concurent URI vs pneumonia' Cardiology: CAD - Stress test concerning for severely reduced LV function, hypokinesis, and reduced EF < 35%. Case discussed with cardiology. No active ischemia appreciated. At this time given patients other clinical factors, medical management is recommended. - continue medications as ordered. - tele monitoring - maintain K > 4 and Mg > 2 - As per cardiology would not place ICD at this time. Explained to patient that if he is able to tolerate medical therapy first and has follow-[facility] with [facility] on discharge that he may be considered for alternative therapies as well -Patient appears to be euvolemic at this time -Reduce Lasix to 20 mg daily 500 cc fluid bolus for prerenal azotemia as well as hypotension to 98/55 Nephrology: + Nausea/+CVA - CT abd/pelv with IV contrast to r/o developing pyelo did not show any evidence of perinephric stranding - UA negative Rheum: Rhabdo - patient CPK levels improving. Endocrinology: DM w/ neuropathy - trial of lyrica 75mg BID - continue insulin regimen - education provided re: optho and podiatry as outpatient Pulmonary: Cough, SOB - legionella/pneumococcal negative antigen - could be secondary to CHF with fluid overload vs pneumonia. - discontinue levaquin (03/09) Patient care: back stiffness, weakness - PT eval - no PT on discharge code: fc dvt ppx dispo: medical surg. will need to clarify where patient lives prior to discharge. 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
[2018-03-11] MEDS: Insulin NovoLOG Aspart Correctional Sugar Inj SQ SCH ×2 (08:41→13:38)
[2018-03-11] MEDS ORDERED: Furosemide 20 MG Tablet PO SCH (09:00)
[2018-03-11] MEDS: Aspirin 325 MG Tablet PO SCH (10:18)
[2018-03-11] MEDS: Pregabalin 75 MG Capsule PO SCH (10:22)
[2018-03-11] MEDS: Senna/Docusate Sodium 8.6/50 MG Tablet PO SCH (10:22)
[2018-03-11] MEDS: Insulin Detemir Inj 1,000 UNIT/10 ML Vial SQ SCH (10:23)
[2018-03-11] MEDS: Lisinopril 5 MG Tablet PO SCH (10:28)
--- NOTE | 2018-03-11 13:27 | P.DS ---
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 He states he has been feeling very weak and unable to sleep. He states he gets short of breath with exertion and is complaining of pain in his epigastric region. He states the pain is a intermittent, stabbing, 10/10, worse with movement and food, nothing makes it better. He states he feels week with pain all over and he is unable to sleep more than 1 hour at night. He states he becomes short of breath with exertion and when laying flat. He states when he lays flat he feels like he cannot breathe and his chest pain becomes worse. He denies any fevers or chills, dysuria, headaches, abdominal pain, vomiting, nausea or diarrhea. DS: Diagnosis Discharge Diagnosis (1) Chest pain, rule out acute myocardial infarction: Status: Acute (2) Cardiomyopathy: Status: Acute (3) Diabetes: Status: Acute (4) Hyperlipidemia: Status: Acute (5) Rhabdomyolysis: Status: Acute (6) SOB (shortness of breath): Status: Acute DS: Summary Patient is a pleasant 62-year-old male with past medical history of BPH, type 2 diabetes, and hyperlipidemia who presented to [facility] with complaints of cough, shortness of breath, and congestion worsening over the previous 3 weeks. Patient reported that he exhibited symptoms of shortness of breath with exertion and when laying flat. Patient was admitted to [facility] with the following treatments and services were provided in his care. Initial CPK level of 2834 was concerning for rhabdomyolysis and patient was initially given IV hydration with improvement in CPK levels and symptoms of muscle aches. Patient was placed on telemetry monitoring and troponin levels were monitored. Consultation was appreciated by cardiology service and patient underwent a adenosine nuclear stress test to evaluate for possible ischemic etiology or component to symptoms. Initial echo significant for moderate left ventricular dysfunction with borderline elevated troponin levels. Nuclear stress test showed evidence of severe global hypokinesis, ejection fraction of 24%, and fixed defect involving the septum, apex, and inferior anderson. No active ischemia noted or reversible defects. Patient was initiated on RADHA inhibitor, beta-liz therapy, and diuretics for management of CHF. Anticoagulation was provided with full dose aspirin. It was recommended from cardiology in the aggressive cardiac risk factor modification be attempted with [facility] to discuss possible ICD placement if patient was able to be compliant with medical management at this time and repeat imaging still showed evidence of compromised cardiac function. Symptoms of shortness of breath clinically improved and patient stable for discharge with following provision for follow-up care. Patient to follow-up with [facility] regarding administration of new prescribed medications from cardiology for CHF. Patient to have repeat kidney function testing within 1 week to monitor kidney function while on medications. Patient will not be discharged on antibiotics at this time as no definitive source of infection was identified. Patient demonstrates compliance with medical management may be considered for further intervention by cardiology after evaluation by [facility] cardiology team. Patient cleared from cardiac standpoint at [place]. Heart healthy low-sodium diet recommended to patient. Time Spent with Patient Total time spent providing and/or coordinating discharge services: > 30 minutes Patient is a pleasant 62-year-old male with past medical history of BPH, type 2 diabetes, and hyperlipidemia who presented to [facility] with complaints of cough, shortness of breath, and congestion worsening over the previous 3 weeks. Patient reported that he exhibited symptoms of shortness of breath with exertion and when laying flat. Patient was admitted to [facility] with the following treatments and services were provided in his care. Initial CPK level of 2834 was concerning for rhabdomyolysis and patient was initially given IV hydration with improvement in CPK levels and symptoms of muscle aches. Patient was placed on telemetry monitoring and troponin levels were monitored. Consultation was appreciated by cardiology service and patient underwent a adenosine nuclear stress test to evaluate for possible ischemic etiology or component to symptoms. Initial echo significant for moderate left ventricular dysfunction with borderline elevated troponin levels. Nuclear stress test showed evidence of severe global hypokinesis, ejection fraction of 24%, and fixed defect involving the septum, apex, and inferior anderson. No active ischemia noted or reversible defects. Patient was initiated on RADHA inhibitor, beta-liz therapy, and diuretics for management of CHF. Anticoagulation was provided with full dose aspirin. It was recommended from cardiology in the aggressive cardiac risk factor modification be attempted with outpatient [facility] to discuss possible ICD placement if patient was able to be compliant with medical management at this time and repeat imaging still showed evidence of compromised cardiac function. Symptoms of shortness of breath clinically improved and patient stable for discharge with following provision for follow-up care. Patient to follow-up with [facility] regarding administration of new prescribed medications from cardiology for CHF. Patient to have repeat kidney function testing within 1 week to monitor kidney function while on medications. Patient will not be discharged on antibiotics at this time as no definitive source of infection was identified. Patient demonstrates compliance with medical management may be considered for further intervention by cardiology after evaluation by [facility] cardiology team. Patient cleared from cardiac standpoint at [place]. Heart healthy low-sodium diet recommended to patient. Quality: VTE Deep Vein Thrombosis/Pulmonary Embolism Present on Admission: No Exam Narrative Exam Narrative: General: No acute distress, conversational Cardiovascular: S1/S2. Respiratory: Clear to auscultation bilaterally. No intercostal muscle use Gastroenterology: Soft, nontender, nondistended, no guarding or rebound appreciated Urology: No CVA tenderness Muscular skeletal: No lower extremity edema, no calf tenderness Results Labs on day of discharge: Labs from last 24 hours 03/11/18 03/11/18 03/10/18 12:44 07:49 20:56 POC Glucose 145 H 114 H 162 H 03/10/18 17:24 POC Glucose 96 Impressions ITS Impressions Venous Doppler Study 03/05/18 00:00 CONCLUSION: Negative study. No venous thrombosis of the right lower extremity. Myocardial Perfusion Scan Nuc Med 03/07/18 08:00 CONCLUSION: 1. Severe global hypokinesis with left ventricular ejection fraction calculated at 24%. 2. Fixed defects involving the septum, apex, inferior wall and lateral wall indicating infarcts in the LAD, RCA and LCx distributions. 3. No reversible defects to suggest ischemia. Abdomen/Pelvis CT 03/08/18 00:00 CONCLUSION: Essentially unremarkable study. Chest X-Ray 03/08/18 00:00 CONCLUSION: Interval improved aeration of lungs compared to the previous examination. Mild residual perihilar infiltrates are noted consistent with possible residual pulmonary vascular congestion or pneumonia Discharge Plan Discharge Disposition Patient Disposition: 01 Discharge Home Discharge Condition Condition: Stable Discharge Order Discharge Orders: Discharge Order (Routine); Ordered 03/11/18 Ordered By: Matteo Hoyos Discharge Details Anticipated Discharge Date: 03/11/18 Physicians Team Primary Care Provider: SUSANNA, Attending Provider: Matteo Hoyos Other Providers: Mike Wu Rxs /Orders / Referrals /Forms Prescriptions: New pregabalin [Lyrica] 75 mg Capsule 75 mg PO BID 30 Days Qty: 60 RF: 1 carvedilol [Coreg] 3.125 mg Tablet 3.125 mg PO BID 30 Days Qty: 60 RF: 1 lisinopril 5 mg Tablet 2.5 mg PO DAILY 30 Days Qty: 15 RF: 1 furosemide 20 mg Tablet 20 mg PO DAILY 30 Days Qty: 30 RF: 0 Continue aspirin [Aspir-81] 81 mg Tablet,Delayed Release (Dr/Ec) 81 mg PO DAILY RF: 0 insulin regular human [Novolin R Regular U-100 Insuln] 100 unit/mL Solution 3 unit IM Q1H RF: 0 Referrals: UNKNOWN, [Primary Care Provider] - See Instructions (Patient to follow [facility] primary [facility] for repeat chemistry of kindey function in 1 week while starting lasix. Patient to follow up [facility] with [facility] for establishment of care and also for consideration of ICD if demonstrates compliance with medical management ( lasix, coreg, lisinopril) as outpatient. ) Discharge Instructions Patient Printed Instructions: Heart Catheterization (DC) Additional Instructions: Patient to have repeat chemistry testing in 1 week while on lasix to monitor kidney function. Discharge Interventions Interventions: Discharge Planning - Case Management Last Done: 03/11/18 10:18 Status ED Status: Left Department
--- NOTE | 2018-03-11 16:20 | P.PNCA ---
Subjective Interval history: Patient denies any CP, pressure, palpitations, dizziness, edema or SOB. Patient states that he is feeling much better at this time. Medications and Allergies Allergies Allergy/AdvReac Type Severity Reaction Status Date / Time No Known Allergies Allergy Verified 03/05/18 00:05 Home Medications Medication Instructions Recorded Confirmed Type insulin regular human [Novolin R 3 unit IM Q1H 03/04/18 03/04/18 History Regular U-100 Insuln] Physical Exam Vital signs: Vital Signs 03/10/18 19:59 03/10/18 20:00 03/11/18 00:00 Temperature 98.1 F 98.9 F Pulse Rate 77 85 Respiratory Rate 15 14 Blood Pressure 106/61 92/60 L Pulse Oximetry 97 93 L 94 L 03/11/18 04:00 03/11/18 08:00 03/11/18 12:00 Temperature 97.5 F L 97.6 F 98.0 F Pulse Rate 94 H 81 58 L Respiratory Rate 17 18 18 Blood Pressure 111/62 99/58 L 104/56 L Pulse Oximetry 96 96 98 Intake & Output 03/10/18 03/11/18 03/11/18 18:59 06:59 18:59 Intake Total 970 / 970 420 / 420 Output Total 1300 / 1300 Balance -330 / -330 420 / 420 Weight 101.2 kg Intake: IV 250 / 250 NS Inj 250 ML @ 500 mls/hr IV. 250 / 250 SIG BOLUS BRIAN Rx#:[id number] Oral 720 / 720 420 / 420 Output: Urine 1300 / 1300 Other: # Voids 3 Date of Last Bowel Movement 03/06/18 03/06/18 - Constitutional no acute distress - Routine HEENT Exam Head: Present: normocephalic Eye: Present: PERRL ENT: Present: mucous membranes moist - Routine Neck Exam Present: full ROM - Routine Respiratory Exam Present: CTA bilaterally - Routine Cardiovascular Exam Present: S1, S2. Absent: murmur, gallop, rubs - Routine Abdominal Exam Present: normoactive bowel sounds - Routine Extremities Exam Present: full ROM, pulses intact, normal capillary refill. Absent: cyanosis, clubbing, edema - Routine Skin Exam Present: intact - Routine Neurological Exam Present: oriented X3 - Detailed Neurological Exam: Coma Scale Eye Opening: Spontaneous Verbal Response: Oriented Motor Response: Obey commands Suzi Coma Scale Total: 15 - Routine Psychiatric Exam Present: normal affect Results 03/08/18 07:15 03/10/18 11:30 Comprehensive Metabolic Panel 03/10/18 Range/Units 11:30 Sodium 134 L (136-145) meq/L Potassium 4.8 (3.5-5.1) meq/L Chloride 98 (98-107) meq/L Carbon Dioxide 25.7 (21.0-32.0) meq/L BUN 32 H (7-18) mg/dL Creatinine 1.42 H (0.60-1.30) mg/dL Calcium 9.1 (8.5-10.1) mg/dL Intake and Output 03/11/18 03/11/18 03/11/18 06:59 14:59 22:59 Intake Total 420 / 420 Balance 420 / 420 Intake: Oral 420 / 420 Other: # Voids 3 Weight 101.2 kg Assessment and Plan - Assessment (1) Chest pain, rule out acute myocardial infarction Code(s): R07.9 - Chest pain, unspecified Status: Acute (2) Cardiomyopathy Code(s): I42.9 - Cardiomyopathy, unspecified Status: Acute (3) Diabetes Code(s): E11.9 - Type 2 diabetes mellitus without complications Status: Acute (4) Hyperlipidemia Code(s): E78.5 - Hyperlipidemia, unspecified Status: Acute (5) Rhabdomyolysis Code(s): M62.82 - Rhabdomyolysis Status: Acute (6) SOB (shortness of breath) Code(s): R06.02 - Shortness of breath Status: Acute - Plan No new cardiac issues at this time, we will continue with current cardiac treatment plan for CHF. Increase patient's activity level as tolerated. Patient is cleared for discharge from a cardiology standpoint. Patient to follow up with the [facility] once discharged from the hospital. The patient was seen and evaluated by Dr. Wu who participated in care, management and decision making. - Attending Attestation Patient seen and examined. I reviewed and agree with the evaluation and plan as presented. Continue tx for CHF. Overall improvement. Anticipate discharge soon. F/u at the [facility]. (5) Rhabdomyolysis Qualifiers: Rhabdomyolysis type: non-traumatic Qualified Code(s): M62.82 - Rhabdomyolysis
== END 2018-03-11 15:54 | disposition home or self-care (01) | DRG 292 ==
LOC: NEPC 23:28 → NEDA 03-05 01:40 → HIMC 03-05 06:30 → N04 03-06 12:48
PROVIDERS: ADMIT Internal Medicine; ATTEND Internal Medicine
DX: I25.10 Atherosclerotic heart disease of native coronary artery without angina pectoris; F32.9 Major depressive disorder, single episode, unspecified; R00.0 Tachycardia, unspecified; I95.9 Hypotension, unspecified; M79.661 Pain in right lower leg; N40.0 Benign prostatic hyperplasia without lower urinary tract symptoms; F17.210 Nicotine dependence, cigarettes, uncomplicated; Z80.42 Family history of malignant neoplasm of prostate; M62.82 Rhabdomyolysis; Z59.0 Homelessness; I42.9 Cardiomyopathy, unspecified; E11.40 Type 2 diabetes mellitus with diabetic neuropathy, unspecified; E11.65 Type 2 diabetes mellitus with hyperglycemia; I50.9 Heart failure, unspecified; Z79.4 Long term (current) use of insulin; E78.5 Hyperlipidemia, unspecified
CPT/HCPCS: 71010; 71045; 74177; 78452; 80048; 80053; 80069; 80076; 80307; 81001; 82550; 82552; 82948; 82962; 83520; 83690; 83735; 83880; 84145; 84484; 85025; 85027; 85610; 85730; 87040; 87070; 87205; 87449; 87641; 90774; 90784; 93005; 93017; 93306; 93971; 94640; 94664; 94665; 96374; 97161; 99285; A9502; C8952; J1644; J1815; J1940; J1956; J2405; J2785; J2920; J2930; J7030; J7040; J7050; Q9967